=== PATIENT | female | born 1930 | race Caucasian/White ===

== ENCOUNTER 2019-02-14 19:25 | Inpatient (IN) | payer MEDICARE ==
[2019-02-16] MEDS ORDERED: Maalox 30 mL Cup PO PRN ×2 (04:32→09:31)
[2019-02-16] MEDS ORDERED: Magnesium Hydroxide (MOM) 30 mL UDC PO PRN (04:32)
[2019-02-16] MEDS ORDERED: GLUCAGON HCl 1 MG KIT IM PRN (06:19)
[2019-02-16] MEDS ORDERED: INSULIN LISPRO SLIDING SCALE 100 UNITS/ML UNIT SUBQ SCH (07:30)
[2019-02-16] MEDS: Multivitamin Tab PO SCH (09:27)
--- NOTE | 2019-02-16 11:29 | History & Physical ---
ADMIT DATE: 02/16/2019 I am covering for Dr. Kelly. IDENTIFYING INFORMATION: The patient is an 88-year-old female. CHIEF COMPLAINT: No idea. 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 The patient was not able to tell me her age, where she is, why she is here. She could not tell me anything is how she ended up here. The patient apparently came on a voluntary status from [facility] and medically cleared at [facility] under the care of Dr. Kelly and Dr. Gonzalez. The patient was admitted because of constant yelling and not taking her medication, non-redirectable. The patient with a history of hypertension, type 2 diabetes, hyperlipidemia, dementia, depression, gastritis, anemia, and Alzheimer's. She arrived, she was somewhat restless, suspicious, tired, labile and signed the consent for voluntary status with psychotropic medication. The patient is on wheelchair, needs moderate assistance with ADLs. The patient when I try talked her summer internship she is a very poor historian; however, she was able to tell me she has 4th grade education that she lives in an apartment by herself, does not realize that she came from a nursing facility. 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 Unable to tell me if she is or not, but she realizes she has 1 girl, unable to tell her age. PAST PSYCHIATRIC HISTORY: Dementia. MEDICAL HISTORY: THE PATIENT IS ALLERGIC TO TETRACYCLINE. The patient has insulin dependent diabetes mellitus type 2, hypertension, gastritis and anemia. The patient also with a history of depression. FAMILY HISTORY: The patient reports that she has 4th grade education, used to work in a Factory. She has one daughter and unable to tell me if she is or not, unable to tell me her age, where she is, why she is here. MENTAL STATUS EXAMINATION: The patient is appropriately dressed, not very groomed. She was in bed. She was alert, unable to tell her age, where she is, why she is here, long or short term memory is poor. She apparently was yelling and screaming at the nursing facility. Long and short term memory is poor. When asked about hallucination, she denies. When asked about prior psychosis, she denies; however, she states that she has a history of depression and dementia. Her insight about her illness is poor, does not realize what problem has. Judgment is poor because of her dementia, agitation. 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 MEDICAL DIAGNOSES: As per medical doctor. INITIAL TREATMENT PLAN: The patient will continue with the amitriptyline, Aricept 5 mg at bedtime. We will continue with the rest of her medications as well as group therapy, milieu therapy. ESTIMATED LENGTH OF STAY: 3-7 days. DISCHARGE CRITERIA: Decrease agitation, psychosis after discharge, outpatient treatment. JOB# [id number]
[2019-02-16] MEDS: INSULIN LISPRO SLIDING SCALE 100 UNITS/ML UNIT SUBQ SCH ×3 (11:47→21:55)
--- NOTE | 2019-02-16 13:45 | History & Physical ---
ADMIT DATE: 02/16/2019 CHIEF COMPLAINT: Medical evaluation and clearance on the patient who was admitted to the Geropsych Unit. HISTORY OF PRESENT ILLNESS: This is an 88-year-old female who is transferred to [facility] from [facility]. The patient was medically cleared at [facility]. Apparently, the patient has been refusing to take medications and constantly yelling, otherwise patient is medically stable. PAST MEDICAL HISTORY: Hypertension, type 2 diabetes, hyperlipidemia, dementia, depression, gastritis, anemia, Alzheimer's. PAST SURGICAL HISTORY: Unknown. ALLERGIES: TETRACYCLINE. SOCIAL HISTORY: The patient is a jail resident. FAMILY HISTORY: Noncontributory. REVIEW OF SYSTEMS: Unable to obtain at this time. The patient is agitated. PHYSICAL EXAMINATION: GENERAL: Elderly female, agitated, in no apparent distress. VITAL SIGNS: Temperature 97, heart rate 76, blood pressure 140/72, respirations 19, O2 of 96%. HEENT: Head normocephalic, atraumatic. NECK: Supple. No mass. LUNGS: Clear bilaterally. ABDOMEN: Soft, nontender. ASSESSMENT: Type 2 diabetes, hypertension, hyperlipidemia, dementia, depression, history of gastritis, history of anemia, Alzheimer's, agitation. PLAN: Continue patient's home medications. Fall precautions were initiated. We will monitor signs and symptoms of hypo and hyperglycemia. We will continue to monitor this patient. JOB# [id number]
[2019-02-16] MEDS: POLYETHYLENE GLYCOL 3350 17 GM PACK PO SCH (21:55)
--- NOTE | 2019-02-17 03:07 | Progress Notes ---
DATE: 02/16/2019 Case was discussed with staff of the patient, reviewed records. The patient continues to be confused, unpredictable, impulsive, needing redirection, looking disheveled, disorganized, internally preoccupied, easily agitated. She is sleeping better, eating better. No side effects with the medication, no sedation, no nausea, no extrapyramidal symptoms. We will continue to work with the patient in group therapy, milieu therapy, adjust medication as needed. JOB# [id number]
[2019-02-17] MEDS: Pantoprazole 40 mg EC Tab PO SCH (06:42)
[2019-02-17] MEDS: INSULIN LISPRO SLIDING SCALE 100 UNITS/ML UNIT SUBQ SCH ×4 (06:53→20:10)
--- NOTE | 2019-02-17 10:45 | Internal Medicine Prog Note ---
Internal Medicine Subjective - Subjective Service Date: 02/17/19 Patient seen and examined:: with staff Patient is:: awake, verbal, agitated, confused Patient Complaints of:: other (History of Alzheimer's disease.) Per staff patient has:: no adverse event, no episodes of fall, agitated Internal Medicine Objective - Results Recent Labs: Laboratory Last Values POC Glucose 150 MG/DL (70 - 105) H 02/16/19 21:55 - Physical Exam Vitals and I&O: Vital Signs Temp 98.6 F 02/17/19 06:10 Pulse 92 02/17/19 06:10 Resp 20 02/17/19 06:10 BP 160/78 02/17/19 06:10 Pulse Ox 98 02/17/19 06:10 Intake & Output 02/16/19 02/17/19 02/17/19 18:59 06:59 18:59 Intake Total 1200 240 Output Total 1 Balance 1200 239 Weight (lbs) 67.132 kg Intake: Oral 1200 240 Output: Urine/Stool Mix 1 Other: # Voids 1 Active Medications: Current Medications Acetaminophen (Tylenol) 650 mg PO Q4H PRN PRN Reason: mild pain 1-3 Stop: 04/17/19 04:37 Acetaminophen (Tylenol) 650 mg PO Q4H PRN PRN Reason: temp above 100.5 F Stop: 04/17/19 04:38 Al Hydrox/Mg Hydrox/Simethicone (Maalox) 30 ml PO Q6HR PRN PRN Reason: indigestion Stop: 04/17/19 09:30 Amitriptyline HCl (Elavil) 25 mg PO HS [facility]; Protocol Stop: 04/17/19 20:59 Last Admin: 02/16/19 21:55 Dose: 25 mg Clopidogrel Bisulfate (Plavix) 75 mg PO DAILY [facility] Stop: 04/17/19 09:44 Last Admin: 02/16/19 09:53 Dose: 75 mg Dextrose (Glutose 40%) 18.75 gm PO PRN PRN PRN Reason: BS Below 70 if tolerate po Stop: 04/17/19 06:18 Docusate Sodium (Colace) 100 mg PO Q12HR PRN PRN Reason: Constipation Stop: 04/17/19 09:30 Donepezil HCl (Aricept) 5 mg PO HS [facility] Stop: 04/17/19 20:59 Last Admin: 02/16/19 21:55 Dose: 5 mg Glucagon (Glucagen) 1 mg IM PRN PRN PRN Reason: BS Below 70 if not tolerate po Stop: 04/17/19 06:18 Insulin Human Lispro (Humalog Insulin Sliding Scale) 0 units SUBQ ACHS [facility]; Protocol Stop: 04/17/19 11:29 Last Admin: 02/17/19 06:53 Dose: Not Given Lorazepam (Ativan) 0.5 mg PO Q4HR PRN; Protocol PRN Reason: Anxiety Stop: 03/18/19 04:31 Magnesium Hydroxide (Milk Of Magnesia) 30 ml PO HS PRN PRN Reason: Constipation Megestrol Acetate (Megace) 400 mg PO QDAC [facility] Stop: 04/18/19 07:29 Last Admin: 02/17/19 06:42 Dose: 400 mg Multivitamins/Vitamin C (Theragran) 1 tab PO DAILY [facility] Stop: 04/17/19 08:59 Last Admin: 02/16/19 09:27 Dose: 1 tab Ondansetron HCl (Zofran Odt) 4 mg PO Q6HR PRN PRN Reason: Nausea Stop: 04/17/19 09:30 Pantoprazole Sodium (Protonix) 40 mg PO QDAC [facility] Stop: 04/18/19 07:29 Last Admin: 02/17/19 06:42 Dose: 40 mg Polyethylene Glycol (Miralax) 17 gm PO HS [facility] Stop: 04/17/19 20:59 Last Admin: 02/16/19 21:55 Dose: 17 gm Risperidone (Risperdal) 0.25 mg PO DAILY [facility]; Protocol Stop: 04/18/19 08:59 Simvastatin (Zocor) 20 mg PO HS [facility]; Protocol Stop: 04/17/19 20:59 Last Admin: 02/16/19 21:55 Dose: 20 mg Sodium Chloride (Nacl Tab) 1 gm PO DAILY [facility] Stop: 04/17/19 09:44 Last Admin: 02/16/19 09:53 Dose: 1 gm Tramadol HCl (Ultram) 25 mg PO Q8HR PRN PRN Reason: Pain (Moderate 4-6) Stop: 04/17/19 09:30 Zolpidem Tartrate (Ambien) 5 mg PO HS PRN PRN Reason: Insomnia Stop: 04/17/19 04:31 Physical Exam: Patient continues to need to be monitored, yelling and screaming, very agitated behavior. General: weak, demented HEENT: NC/AT Neck: Supple, No JVD Lungs: CTAB Cardiovascular: RRR, Normal S1, Normal S2 Abdomen: soft, non-tender Extremities: clear Neurological: no change Internal Medicine Assmt/Plan - Assessment Assessment: Alzheimer's disease. Agitation. Dementia. Hypertension. Diabetes. Hyperlipidemia. Depression. History of Gastritis. History of Anemia. - Plan Plan: Continue present meds as directed Psych management as per Psych. Monitor vitals and labs. Monitor diet and nutritional support. Fall precaution. Accu-check twice daily. Continue present care management. Nutritional Asmnt/Malnutr-PDOC - Dietary Evaluation Malnutrition Findings (Please click <Entered> for more info): See orders.
[2019-02-17] MEDS: Multivitamin Tab PO SCH (10:56)
[2019-02-17] MEDS: POLYETHYLENE GLYCOL 3350 17 GM PACK PO SCH (20:39)
--- NOTE | 2019-02-18 00:14 | Progress Notes ---
DATE: 02/17/2019 SUBJECTIVE: Chart was reviewed and the patient interviewed. Also, discussed the patient's condition with the staff and reviewed records and labs. The patient is still hyperverbal and still screaming and yelling and needs lots of redirections. She is also still suspicious and paranoid about staff and easily agitated. She also is still having severe anxiety and mood swings. Otherwise, the patient is compliant with taking Aricept with no side effects. ASSESSMENT: The patient is still psychotic and agitated. TREATMENT PLAN: Continue to monitor behavior and condition closely. Also, we will add Risperdal in a dose of 0.5 mg at bedtime and will adjust the dose. Also, continue working on her irritability and poor impulse control. JOB# [id number]
[2019-02-18] MEDS: Pantoprazole 40 mg EC Tab PO SCH (06:55)
[2019-02-18] MEDS: INSULIN LISPRO SLIDING SCALE 100 UNITS/ML UNIT SUBQ SCH ×4 (07:01→21:50)
[2019-02-18] MEDS: Multivitamin Tab PO SCH (08:15)
--- NOTE | 2019-02-18 19:48 | Progress Notes ---
DATE: 02/18/2019 SUBJECTIVE: The patient was seen in her room. The patient is asleep, but easily arousable. The patient appears to be guarded, easily gets frustrated with unpredictable behavior. Otherwise, the patient appears to be in no acute distress. OBJECTIVE: VITAL SIGNS: Temperature 98.5, heart rate 78, blood pressure 136/76, respirations 18, 98% on room air. HEENT: Head is atraumatic, normocephalic. Eyes; bilateral conjunctivae are clear, bilateral pupils equal, round, reactive. NECK: Supple. No JVD. CARDIOVASCULAR: S1 and S2 without murmur. PULMONARY: Clear to auscultation. GASTROINTESTINAL: Soft and nontender without guarding. Positive bowel sounds. MUSCULOSKELETAL: No clubbing. No cyanosis noted. ASSESSMENT: 1. Dementia. 2. Hypertension. 3. Hyperlipidemia. 4. Diabetes. 5. Gastroesophageal reflux disease. 6. History of anemia. PLAN: We will continue to keep the patient inpatient to Psychiatric Unit. We will follow with a psychiatrist to monitor the patient's condition and behavior. We will put the patient on fall precautions. Treatment plans were discussed with the patient's nurse. Treatment plans were discussed with Dr. Gonzalez. JOB# [id number]
[2019-02-18] MEDS: POLYETHYLENE GLYCOL 3350 17 GM PACK PO SCH (21:54)
--- NOTE | 2019-02-19 00:51 | Progress Notes ---
DATE: 02/18/2019 SUBJECTIVE: The patient was seen and evaluated. The patient's chart was reviewed. Covering for Dr. Kelly. IDENTIFYING DATA: An 88-year-old female. The patient was brought in here after the patient came from [facility] for constant yelling and not taking her medications. Today on [id number] evaluation, the patient presents as a very poor historian. She does not know why she is here and she mostly stares on upon questioning her about her mood. She just continues to perseverate, who are you, who are you and attempted to redirect and reassure that I am the physician. She dismisses and then becomes noncompliant with the interview. ASSESSMENT AND PLAN: The patient with the history of dementia with behavior disturbances, who continues to be suspicious. We will continue with the current medication regimen and medication reconciliation was reviewed, which includes risperidone 0.25 daily while we obtain more collateral information and also Aricept. JOB# [id number]
[2019-02-19] MEDS: Pantoprazole 40 mg EC Tab PO SCH (06:56)
[2019-02-19] MEDS: INSULIN LISPRO SLIDING SCALE 100 UNITS/ML UNIT SUBQ SCH ×5 (06:57→21:49)
[2019-02-19] MEDS: Multivitamin Tab PO SCH (09:52)
--- NOTE | 2019-02-19 12:30 | Progress Notes ---
DATE: 02/19/[address] Kelly. Today on [id number] evaluation, continues to be very suspicious, reporting that she does not want to share any information. EXAMINATION: Suspicious of ____. ASSESSMENT PLAN: Dementia with behavior disturbance and psychotic behavior as evident by suspicious, avoidant, and restraining from giving the information. We will continue with the recent addition of Aricept and Risperdal. JOB# [id number]
--- NOTE | 2019-02-19 13:25 | Internal Medicine Prog Note ---
Internal Medicine Subjective - Subjective Patient is:: asleep, verbal, agitated, confused Patient Complaints of:: other (History of Alzheimer's disease.) Per staff patient has:: no adverse event, no episodes of fall, agitated Internal Medicine Objective - Results Recent Labs: Laboratory Last Values POC Glucose 146 MG/DL (70 - 105) H 02/18/19 22:05 - Physical Exam Vitals and I&O: Vital Signs Temp 97.9 F 02/18/19 21:08 Pulse 79 02/18/19 21:08 Resp 19 02/18/19 21:08 BP 134/63 02/18/19 21:08 Pulse Ox 90 02/18/19 21:08 Intake & Output 02/18/19 02/19/19 02/19/19 18:59 06:59 18:59 Intake Total 800 120 Balance 800 120 Intake: Oral 800 120 Other: # Voids 3 2 # Bowel Movements 0 0 Active Medications: Current Medications Acetaminophen (Tylenol) 650 mg PO Q4H PRN PRN Reason: mild pain 1-3 Stop: 04/17/19 04:37 Acetaminophen (Tylenol) 650 mg PO Q4H PRN PRN Reason: temp above 100.5 F Stop: 04/17/19 04:38 Al Hydrox/Mg Hydrox/Simethicone (Maalox) 30 ml PO Q6HR PRN PRN Reason: indigestion Stop: 04/17/19 09:30 Amitriptyline HCl (Elavil) 25 mg PO HS [facility]; Protocol Stop: 04/17/19 20:59 Last Admin: 02/18/19 21:53 Dose: 25 mg Clopidogrel Bisulfate (Plavix) 75 mg PO DAILY [facility] Stop: 04/17/19 09:44 Last Admin: 02/19/19 09:53 Dose: 75 mg Dextrose (Glutose 40%) 18.75 gm PO PRN PRN PRN Reason: BS Below 70 if tolerate po Stop: 04/17/19 06:18 Docusate Sodium (Colace) 100 mg PO Q12HR PRN PRN Reason: Constipation Stop: 04/17/19 09:30 Donepezil HCl (Aricept) 5 mg PO HS [facility] Stop: 04/17/19 20:59 Last Admin: 02/18/19 21:54 Dose: 5 mg Glucagon (Glucagen) 1 mg IM PRN PRN PRN Reason: BS Below 70 if not tolerate po Stop: 04/17/19 06:18 Insulin Human Lispro (Humalog Insulin Sliding Scale) 0 units SUBQ ACHS [facility]; Protocol Stop: 04/17/19 11:29 Last Admin: 02/19/19 12:00 Dose: Not Given Lorazepam (Ativan) 0.5 mg PO Q4HR PRN; Protocol PRN Reason: Anxiety Stop: 03/18/19 04:31 Magnesium Hydroxide (Milk Of Magnesia) 30 ml PO HS PRN PRN Reason: Constipation Megestrol Acetate (Megace) 400 mg PO QDAC [facility] Stop: 04/18/19 07:29 Last Admin: 02/19/19 06:56 Dose: 400 mg Multivitamins/Vitamin C (Theragran) 1 tab PO DAILY [facility] Stop: 04/17/19 08:59 Last Admin: 02/19/19 09:52 Dose: 1 tab Mupirocin (Bactroban Oint) 1 appl NS BID [facility] Stop: 02/23/19 17:01 Last Admin: 02/19/19 09:53 Dose: 1 appl Ondansetron HCl (Zofran Odt) 4 mg PO Q6HR PRN PRN Reason: Nausea Stop: 04/17/19 09:30 Pantoprazole Sodium (Protonix) 40 mg PO QDAC [facility] Stop: 04/18/19 07:29 Last Admin: 02/19/19 06:56 Dose: 40 mg Polyethylene Glycol (Miralax) 17 gm PO HS [facility] Stop: 04/17/19 20:59 Last Admin: 02/18/19 21:54 Dose: 17 gm Risperidone (Risperdal) 0.25 mg PO DAILY [facility]; Protocol Stop: 04/18/19 08:59 Last Admin: 02/19/19 09:52 Dose: 0.25 mg Simvastatin (Zocor) 20 mg PO HS [facility]; Protocol Stop: 04/17/19 20:59 Last Admin: 02/18/19 21:54 Dose: 20 mg Sodium Chloride (Nacl Tab) 1 gm PO DAILY [facility] Stop: 04/17/19 09:44 Last Admin: 02/19/19 09:52 Dose: 1 gm Tramadol HCl (Ultram) 25 mg PO Q8HR PRN PRN Reason: Pain (Moderate 4-6) Stop: 04/17/19 09:30 Zolpidem Tartrate (Ambien) 5 mg PO HS PRN PRN Reason: Insomnia Stop: 04/17/19 04:31 Last Admin: 02/18/19 21:54 Dose: 5 mg General: weak, demented, NAD HEENT: NC/AT Neck: Supple, No JVD Lungs: other (no acute respiratory distress on RA) Cardiovascular: RRR Abdomen: soft, non-tender Extremities: clear Neurological: no change Internal Medicine Assmt/Plan - Assessment Assessment: Dementia Depression Agitation HTN Hyperlipidemia DM GERD hx anemia - Plan Plan: Continue current treatment plan. Continue current medications Continue to monitor VS Monitor Diet/Nutritional support. Psych management per Psychiatry. Pain Management. PT/OT prn Safety precaution, Fall precaution, frequent nursing round. Supportive care. Continue collaborating with consulting specialists, case management and nursing team
[2019-02-19] MEDS ORDERED: Guaifenesin DM 10 ML UDC PO PRN (16:53)
[2019-02-19] MEDS: POLYETHYLENE GLYCOL 3350 17 GM PACK PO SCH (21:48)
[2019-02-20] MEDS: INSULIN LISPRO SLIDING SCALE 100 UNITS/ML UNIT SUBQ SCH ×4 (06:55→21:03)
[2019-02-20] MEDS: Pantoprazole 40 mg EC Tab PO SCH (06:55)
--- NOTE | 2019-02-20 08:41 | Progress Notes ---
DATE: SUBJECTIVE: Chart reviewed and the patient interviewed and discussed the patient's condition with the staff. The patient continued rambling in [place]uvian language and also the patient is nonsensical. She also is still guarded and has labile affect. Also, the patient is suspicious and paranoid and confused. Otherwise, the patient is easier to redirect. ASSESSMENT: The patient is still psychotic. TREATMENT PLAN: We will start the patient on Risperdal 0.25 mg every day and we will continue to monitor her behavior closely. [facility]# [id number]
[2019-02-20] MEDS: Multivitamin Tab PO SCH (09:07)
--- NOTE | 2019-02-20 12:45 | Internal Medicine Prog Note ---
Internal Medicine Subjective - Subjective Service Date: 02/20/19 Patient seen and examined:: with staff Patient is:: asleep, verbal, agitated, confused Patient Complaints of:: other (History of Alzheimer's disease.) Per staff patient has:: no adverse event, no episodes of fall, agitated Internal Medicine Objective - Results Recent Labs: Laboratory Last Values POC Glucose 138 MG/DL (70 - 105) H 02/20/19 11:25 - Physical Exam Vitals and I&O: Vital Signs Temp 98.5 F 02/19/19 20:52 Pulse 96 02/19/19 20:52 Resp 20 02/19/19 20:52 BP 141/75 02/19/19 20:52 Pulse Ox 94 02/19/19 20:52 Intake & Output 02/19/19 02/20/19 02/20/19 18:59 06:59 18:59 Intake Total 800 240 Balance 800 240 Intake: Oral 800 240 Other: # Voids 3 2 # Bowel Movements 1 Active Medications: Current Medications Acetaminophen (Tylenol) 650 mg PO Q4H PRN PRN Reason: mild pain 1-3 Stop: 04/17/19 04:37 Acetaminophen (Tylenol) 650 mg PO Q4H PRN PRN Reason: temp above 100.5 F Stop: 04/17/19 04:38 Al Hydrox/Mg Hydrox/Simethicone (Maalox) 30 ml PO Q6HR PRN PRN Reason: indigestion Stop: 04/17/19 09:30 Amitriptyline HCl (Elavil) 25 mg PO HS [facility]; Protocol Stop: 04/17/19 20:59 Last Admin: 02/19/19 21:49 Dose: 25 mg Clopidogrel Bisulfate (Plavix) 75 mg PO DAILY [facility] Stop: 04/17/19 09:44 Last Admin: 02/20/19 09:06 Dose: 75 mg Dextrose (Glutose 40%) 18.75 gm PO PRN PRN PRN Reason: BS Below 70 if tolerate po Stop: 04/17/19 06:18 Docusate Sodium (Colace) 100 mg PO Q12HR PRN PRN Reason: Constipation Stop: 04/17/19 09:30 Donepezil HCl (Aricept) 5 mg PO HS [facility] Stop: 04/17/19 20:59 Last Admin: 02/19/19 21:48 Dose: 5 mg Glucagon (Glucagen) 1 mg IM PRN PRN PRN Reason: BS Below 70 if not tolerate po Stop: 04/17/19 06:18 Guaifenesin/Dextromethorphan (Robitussin Dm) 10 ml PO Q6HR PRN PRN Reason: Cough Stop: 04/20/19 16:52 Insulin Human Lispro (Humalog Insulin Sliding Scale) 0 units SUBQ ACHS [facility]; Protocol Stop: 04/17/19 11:29 Last Admin: 02/20/19 11:27 Dose: Not Given Lorazepam (Ativan) 0.5 mg PO Q4HR PRN; Protocol PRN Reason: Anxiety Stop: 03/18/19 04:31 Magnesium Hydroxide (Milk Of Magnesia) 30 ml PO HS PRN PRN Reason: Constipation Megestrol Acetate (Megace) 400 mg PO QDAC [facility] Stop: 04/18/19 07:29 Last Admin: 02/20/19 06:55 Dose: 400 mg Multivitamins/Vitamin C (Theragran) 1 tab PO DAILY [facility] Stop: 04/17/19 08:59 Last Admin: 02/20/19 09:07 Dose: 1 tab Mupirocin (Bactroban Oint) 1 appl NS BID [facility] Stop: 02/23/19 17:01 Last Admin: 02/20/19 09:09 Dose: 1 appl Ondansetron HCl (Zofran Odt) 4 mg PO Q6HR PRN PRN Reason: Nausea Stop: 04/17/19 09:30 Pantoprazole Sodium (Protonix) 40 mg PO QDAC [facility] Stop: 04/18/19 07:29 Last Admin: 02/20/19 06:55 Dose: 40 mg Polyethylene Glycol (Miralax) 17 gm PO HS [facility] Stop: 04/17/19 20:59 Last Admin: 02/19/19 21:48 Dose: 17 gm Risperidone (Risperdal) 0.25 mg PO DAILY [facility]; Protocol Stop: 04/18/19 08:59 Last Admin: 02/20/19 09:07 Dose: 0.25 mg Simvastatin (Zocor) 20 mg PO HS [facility]; Protocol Stop: 04/17/19 20:59 Last Admin: 02/19/19 21:50 Dose: 20 mg Sodium Chloride (Nacl Tab) 1 gm PO DAILY [facility] Stop: 04/17/19 09:44 Last Admin: 02/20/19 09:07 Dose: 1 gm Tramadol HCl (Ultram) 25 mg PO Q8HR PRN PRN Reason: Pain (Moderate 4-6) Stop: 04/17/19 09:30 Zolpidem Tartrate (Ambien) 5 mg PO HS PRN PRN Reason: Insomnia Stop: 04/17/19 04:31 Last Admin: 02/19/19 21:49 Dose: 5 mg Physical Exam: Patient continues to need to be monitored, aggressive and has hostile behavior. General: weak, demented, NAD HEENT: NC/AT Neck: Supple, No JVD Lungs: other (no acute respiratory distress on RA) Cardiovascular: RRR Abdomen: soft, non-tender Extremities: clear Neurological: no change Internal Medicine Assmt/Plan - Assessment Assessment: Alzheimer's disease. Agitation. Dementia. Hypertension. Diabetes. Hyperlipidemia. Depression. History of Gastritis. History of Anemia. - Plan Plan: Continue present meds as directed Psych management as per Psych. Monitor vitals and labs. Monitor diet and nutritional support. Fall precaution. Accu-check twice daily. Continue present care management. Nutritional Asmnt/Malnutr-PDOC - Dietary Evaluation Malnutrition Findings (Please click <Entered> for more info): see orders.
[2019-02-20] MEDS: POLYETHYLENE GLYCOL 3350 17 GM PACK PO SCH (20:52)
[2019-02-21] MEDS: Pantoprazole 40 mg EC Tab PO SCH (06:55)
[2019-02-21] MEDS: INSULIN LISPRO SLIDING SCALE 100 UNITS/ML UNIT SUBQ SCH ×4 (06:55→21:42)
[2019-02-21] MEDS: Multivitamin Tab PO SCH (08:30)
--- NOTE | 2019-02-21 16:34 | Internal Medicine Prog Note ---
Internal Medicine Subjective - Subjective Service Date: 02/21/19 Patient is:: asleep, verbal, agitated, confused Patient Complaints of:: other (History of Alzheimer's disease.) Per staff patient has:: no adverse event, no episodes of fall, agitated Internal Medicine Objective - Results Recent Labs: Laboratory Last Values POC Glucose 127 MG/DL (70 - 105) H 02/21/19 11:17 - Physical Exam Vitals and I&O: Vital Signs Temp 97.5 F 02/21/19 14:00 Pulse 82 02/21/19 14:00 Resp 19 02/21/19 14:00 BP 152/87 02/21/19 14:00 Pulse Ox 96 02/21/19 14:00 Intake & Output 02/20/19 02/21/19 02/21/19 18:59 06:59 18:59 Intake Total 900 240 Output Total 1 Balance 900 239 Intake: Oral 900 240 Output: Urine/Stool Mix 1 Other: # Voids 3 3 # Bowel Movements 0 0 Active Medications: Current Medications Acetaminophen (Tylenol) 650 mg PO Q4H PRN PRN Reason: mild pain 1-3 Stop: 04/17/19 04:37 Acetaminophen (Tylenol) 650 mg PO Q4H PRN PRN Reason: temp above 100.5 F Stop: 04/17/19 04:38 Al Hydrox/Mg Hydrox/Simethicone (Maalox) 30 ml PO Q6HR PRN PRN Reason: indigestion Stop: 04/17/19 09:30 Amitriptyline HCl (Elavil) 25 mg PO HS [facility]; Protocol Stop: 04/17/19 20:59 Last Admin: 02/20/19 20:52 Dose: 25 mg Clopidogrel Bisulfate (Plavix) 75 mg PO DAILY [facility] Stop: 04/17/19 09:44 Last Admin: 02/21/19 08:30 Dose: 75 mg Dextrose (Glutose 40%) 18.75 gm PO PRN PRN PRN Reason: BS Below 70 if tolerate po Stop: 04/17/19 06:18 Docusate Sodium (Colace) 100 mg PO Q12HR PRN PRN Reason: Constipation Stop: 04/17/19 09:30 Donepezil HCl (Aricept) 10 mg PO HS [facility] Stop: 04/22/19 20:59 Glucagon (Glucagen) 1 mg IM PRN PRN PRN Reason: BS Below 70 if not tolerate po Stop: 04/17/19 06:18 Guaifenesin/Dextromethorphan (Robitussin Dm) 10 ml PO Q6HR PRN PRN Reason: Cough Stop: 04/20/19 16:52 Insulin Human Lispro (Humalog Insulin Sliding Scale) 0 units SUBQ ACHS [facility]; Protocol Stop: 04/17/19 11:29 Last Admin: 02/21/19 16:27 Dose: Not Given Lorazepam (Ativan) 0.5 mg PO Q4HR PRN; Protocol PRN Reason: Anxiety Stop: 03/18/19 04:31 Magnesium Hydroxide (Milk Of Magnesia) 30 ml PO HS PRN PRN Reason: Constipation Megestrol Acetate (Megace) 400 mg PO QDAC [facility] Stop: 04/18/19 07:29 Last Admin: 02/21/19 06:55 Dose: 400 mg Multivitamins/Vitamin C (Theragran) 1 tab PO DAILY [facility] Stop: 04/17/19 08:59 Last Admin: 02/21/19 08:30 Dose: 1 tab Mupirocin (Bactroban Oint) 1 appl NS BID [facility] Stop: 02/23/19 17:01 Last Admin: 02/21/19 09:40 Dose: 1 appl Ondansetron HCl (Zofran Odt) 4 mg PO Q6HR PRN PRN Reason: Nausea Stop: 04/17/19 09:30 Pantoprazole Sodium (Protonix) 40 mg PO QDAC [facility] Stop: 04/18/19 07:29 Last Admin: 02/21/19 06:55 Dose: 40 mg Polyethylene Glycol (Miralax) 17 gm PO HS [facility] Stop: 04/17/19 20:59 Last Admin: 02/20/19 20:52 Dose: 17 gm Risperidone (Risperdal) 0.25 mg PO DAILY [facility]; Protocol Stop: 04/18/19 08:59 Last Admin: 02/21/19 08:30 Dose: 0.25 mg Simvastatin (Zocor) 20 mg PO HS [facility]; Protocol Stop: 04/17/19 20:59 Last Admin: 02/20/19 20:52 Dose: 20 mg Sodium Chloride (Nacl Tab) 1 gm PO DAILY [facility] Stop: 04/17/19 09:44 Last Admin: 02/21/19 08:30 Dose: 1 gm Tramadol HCl (Ultram) 25 mg PO Q8HR PRN PRN Reason: Pain (Moderate 4-6) Stop: 04/17/19 09:30 Zolpidem Tartrate (Ambien) 5 mg PO HS PRN PRN Reason: Insomnia Stop: 04/17/19 04:31 Last Admin: 02/20/19 20:52 Dose: 5 mg General: weak, demented, NAD HEENT: NC/AT Neck: Supple, No JVD Lungs: other (no acute respiratory distress on RA) Cardiovascular: RRR Abdomen: soft, non-tender Extremities: clear Neurological: no change Nutritional Asmnt/Malnutr-PDOC - Dietary Evaluation Malnutrition Findings (Please click <Entered> for more info): Nutritional Asmnt/Malnutrition Start: 02/21/19 13: 58 Text: Status: Complete Freq: Protocol: Document 02/21/19 14:00 IRIS (Rec: 02/21/19 14:03 [email or web address] [id number]) Nutritional Asmnt/Malnutrition Patient General Information Nutritional Screening Moderate Risk Diagnosis Psychosis Pertinent Medical Hx/Surgical Hx HTN, DMT2- insulin dependent, Hyperlipidemia, Dementia, Depression, Anemia, Alzheimer s Disease Subjective Information Pt is a 88-year-old female admitted on 02/16 d/t constant yelling, not taking medication and being undirectable. Pt is currently eating an estimated 60% x3 days (average) per Meal/Nutrition Activity Record . Dietary is currently providing an estimated 2000 kcals and 120 gm Pro. Per pt PO intake, this is providing an estimated 1200 kcals and 70gm Pro, to meet an estimated 71% kcal and 100% Pro needs. Will continue to monitor pt PO intake trends. Pt was in the community room at time of visit getting ready for activities. Anthropometrics HT: 55 WT: 148 LB (67.27 kg) BMI: 24.68 (normal) GI/ Skin Integrity GI symptoms: soft, non-tender Kamron: 16 Skin Integrity:WNL, intact I/O: 1140/1 (+1139) Last BM: 02/19 x1 Diet Rx: Mechanical Soft, NCS, CRISTHIAN Estimated Energy Needs: ( Geriatric, CBW) 2666-8038 kcals (25-30 kcals/ kg) 67-80g Pro (1.0-1.2 g/kg) 5992-8606 ml (25-30 ml/kg) Current Diet Order/ Nutrition Support Mechanical Soft, NCS, CRISTHIAN Pertinent Medications Maalox (PRN), Plavix, Glutose 40% (PRN), Colace, Glucagen ( PRN), INS-SS, MOM (PRN), Megace, Theragran Pertinent Labs POC Glucose (last 24 hours): 117, 138, 106, 93 02/16: Na 132, Glucose 122, Alb 2.8, HDL 29, A1c 5.9% Nutritional Hx/Data Height 5 ft 5 in Height (Calculated Centimeters) 165.1 Current Weight (lbs) 148 lb Weight (Calculated Kilograms) 67.1 Weight (Calculated Grams) 78387.7 [place] Body Weight 125 LB (56.82 kg) % [place] Body Weight 118 Body Mass Index (BMI) 24.6 Weight Status Approriate GI Symptoms GI Symptoms None Last BM 02/19 x1 Skin Integrity/Comment: Kamron: Miko Skin Integrity: WNL, intact Current %PO Fair (50-74%) Estimated Nutritional Goals BEE in Kcals: Using Current wt Calories/Kcals/Kg 25-30 Kcals Calculated 7467-6614 Protein: Using Current wt Protein g/k.0-1.2 Protein Calculated 67-80 Fluid: ml 7439-3920 ml (25-30 ml/kg) Nutritional Problem 1. Problem Problem Impaired nutrient utilization Etiology r/t endocrine dysfunction Signs/Symptoms: aeb Hx DMT2 and labs POC Glucose (last 24 hours): 117, 138, 106, 93, A1c (02/16) 5.9%. Malnutrition Related to Morbid Obesity Malnutrition related to morbid obesity No Intervention/Recommendation Comments 1.Continue Mechanical Soft, NCS, CRISTHIAN diet as tolerated. 2.Continue antihyperglycemic medications for glucose control per MD order. Expected Outcomes/Goals Expected Outcomes/Goals 1.PO intake to continue to meet 75% of estimated nutritional needs. 2.Monitor PO intake, wt, nutrition related labs, and skin integrity. 3.F/U as low risk in 7-10 days , 02/28-03/03
[2019-02-21] MEDS: POLYETHYLENE GLYCOL 3350 17 GM PACK PO SCH (21:46)
--- NOTE | 2019-02-21 22:09 | Progress Notes ---
DATE: SUBJECTIVE: Chart was reviewed and the patient interviewed. Also discussed the patient's condition with the staff and reviewed records and labs. The patient continue rambling in English language, was difficult to understand. She also is still nonsensical and is still paranoid and suspicious and guarded today. Also, staff reports episodes of yelling and screaming and being restless. Otherwise, the patient seems to be preoccupied and hardly answer questions and is talking to self. ASSESSMENT: The patient is still psychotic. TREATMENT PLAN: Continue to monitor behavior and condition. Also, increase Aricept to 10 mg at bedtime and continue to follow up. JOB# [id number]
[2019-02-22] MEDS: INSULIN LISPRO SLIDING SCALE 100 UNITS/ML UNIT SUBQ SCH ×4 (06:39→20:30)
[2019-02-22] MEDS: Pantoprazole 40 mg EC Tab PO SCH (07:08)
[2019-02-22] MEDS: Multivitamin Tab PO SCH (08:59)
--- NOTE | 2019-02-22 13:26 | Internal Medicine Prog Note ---
Internal Medicine Subjective - Subjective Service Date: 02/22/19 Patient seen and examined:: with staff Patient is:: awake, verbal, agitated, confused Patient Complaints of:: other (History of Alzheimer's disease.) Per staff patient has:: no adverse event, no episodes of fall, agitated Internal Medicine Objective - Results Recent Labs: Laboratory Last Values POC Glucose 105 MG/DL (70 - 105) 02/22/19 11:45 - Physical Exam Vitals and I&O: Vital Signs Temp 98.1 F 02/22/19 06:35 Pulse 73 02/22/19 06:35 Resp 18 02/22/19 06:35 BP 145/86 02/22/19 06:35 Pulse Ox 95 02/22/19 06:35 Intake & Output 02/21/19 02/22/19 02/22/19 18:59 06:59 18:59 Intake Total 850 120 Balance 850 120 Intake: Oral 850 120 Other: # Voids 3 3 # Bowel Movements 1 0 Active Medications: Current Medications Acetaminophen (Tylenol) 650 mg PO Q4H PRN PRN Reason: mild pain 1-3 Stop: 04/17/19 04:37 Acetaminophen (Tylenol) 650 mg PO Q4H PRN PRN Reason: temp above 100.5 F Stop: 04/17/19 04:38 Al Hydrox/Mg Hydrox/Simethicone (Maalox) 30 ml PO Q6HR PRN PRN Reason: indigestion Stop: 04/17/19 09:30 Amitriptyline HCl (Elavil) 25 mg PO HS [facility]; Protocol Stop: 04/17/19 20:59 Last Admin: 02/21/19 21:44 Dose: 25 mg Clopidogrel Bisulfate (Plavix) 75 mg PO DAILY [facility] Stop: 04/17/19 09:44 Last Admin: 02/22/19 08:59 Dose: 75 mg Dextrose (Glutose 40%) 18.75 gm PO PRN PRN PRN Reason: BS Below 70 if tolerate po Stop: 04/17/19 06:18 Docusate Sodium (Colace) 100 mg PO Q12HR PRN PRN Reason: Constipation Stop: 04/17/19 09:30 Donepezil HCl (Aricept) 10 mg PO HS [facility] Stop: 04/22/19 20:59 Last Admin: 02/21/19 21:44 Dose: 10 mg Glucagon (Glucagen) 1 mg IM PRN PRN PRN Reason: BS Below 70 if not tolerate po Stop: 04/17/19 06:18 Guaifenesin/Dextromethorphan (Robitussin Dm) 10 ml PO Q6HR PRN PRN Reason: Cough Stop: 04/20/19 16:52 Insulin Human Lispro (Humalog Insulin Sliding Scale) 0 units SUBQ ACHS [facility]; Protocol Stop: 04/17/19 11:29 Last Admin: 02/22/19 12:28 Dose: Not Given Lorazepam (Ativan) 0.5 mg PO Q4HR PRN; Protocol PRN Reason: Anxiety Stop: 03/18/19 04:31 Last Admin: 02/21/19 23:09 Dose: 0.5 mg Magnesium Hydroxide (Milk Of Magnesia) 30 ml PO HS PRN PRN Reason: Constipation Megestrol Acetate (Megace) 400 mg PO QDAC [facility] Stop: 04/18/19 07:29 Last Admin: 02/22/19 07:08 Dose: 400 mg Multivitamins/Vitamin C (Theragran) 1 tab PO DAILY [facility] Stop: 04/17/19 08:59 Last Admin: 02/22/19 08:59 Dose: 1 tab Mupirocin (Bactroban Oint) 1 appl NS BID [facility] Stop: 02/23/19 17:01 Last Admin: 02/22/19 08:59 Dose: 1 appl Ondansetron HCl (Zofran Odt) 4 mg PO Q6HR PRN PRN Reason: Nausea Stop: 04/17/19 09:30 Pantoprazole Sodium (Protonix) 40 mg PO QDAC [facility] Stop: 04/18/19 07:29 Last Admin: 02/22/19 07:08 Dose: 40 mg Polyethylene Glycol (Miralax) 17 gm PO HS [facility] Stop: 04/17/19 20:59 Last Admin: 02/21/19 21:46 Dose: 17 gm Risperidone (Risperdal) 0.25 mg PO BID [facility]; Protocol Stop: 04/23/19 08:59 Last Admin: 02/22/19 09:29 Dose: 0.25 mg Simvastatin (Zocor) 20 mg PO HS [facility]; Protocol Stop: 04/17/19 20:59 Last Admin: 02/21/19 21:45 Dose: 20 mg Sodium Chloride (Nacl Tab) 1 gm PO DAILY [facility] Stop: 04/17/19 09:44 Last Admin: 02/22/19 08:59 Dose: 1 gm Tramadol HCl (Ultram) 25 mg PO Q8HR PRN PRN Reason: Pain (Moderate 4-6) Stop: 04/17/19 09:30 Zolpidem Tartrate (Ambien) 5 mg PO HS PRN PRN Reason: Insomnia Stop: 04/17/19 04:31 Last Admin: 02/21/19 22:27 Dose: 5 mg Physical Exam: Patient continues to need to be monitored, unpredictable, remains very psychotic and aggressive. General: weak, demented, NAD HEENT: NC/AT Neck: Supple, No JVD Lungs: other (no acute respiratory distress on RA) Cardiovascular: RRR Abdomen: soft, non-tender Extremities: clear Neurological: no change Internal Medicine Assmt/Plan - Assessment Assessment: Alzheimer's disease. Agitation. Dementia. Hypertension. Diabetes. Hyperlipidemia. Depression. History of Gastritis. History of Anemia. - Plan Plan: Continue present meds as directed Psych management as per Psych. Monitor vitals and labs. Monitor diet and nutritional support. Fall precaution. Accu-check twice daily. Continue present care management. Nutritional Asmnt/Malnutr-PDOC - Dietary Evaluation Malnutrition Findings (Please click <Entered> for more info): Nutritional Asmnt/Malnutrition Start: 02/21/19 13: 58 Text: Status: Complete Freq: Protocol: Document 02/21/19 14:00 IRIS (Rec: 02/21/19 14:03 IRIS [id number]) Nutritional Asmnt/Malnutrition Patient General Information Nutritional Screening Moderate Risk Diagnosis Psychosis Pertinent Medical Hx/Surgical Hx HTN, DMT2- insulin dependent, Hyperlipidemia, Dementia, Depression, Anemia, Alzheimer s Disease Subjective Information Pt is a 88-year-old female admitted on 02/16 d/t constant yelling, not taking medication and being undirectable. Pt is currently eating an estimated 60% x3 days (average) per Meal/Nutrition Activity Record . Dietary is currently providing an estimated 2000 kcals and 120 gm Pro. Per pt PO intake, this is providing an estimated 1200 kcals and 70gm Pro, to meet an estimated 71% kcal and 100% Pro needs. Will continue to monitor pt PO intake trends. Pt was in the community room at time of visit getting ready for activities. Anthropometrics HT: 55 WT: 148 LB (67.27 kg) BMI: 24.68 (normal) GI/ Skin Integrity GI symptoms: soft, non-tender Kamron: 16 Skin Integrity:WNL, intact I/O: 1140/1 (+1139) Last BM: 02/19 x1 Diet Rx: Mechanical Soft, NCS, CRISTHIAN Estimated Energy Needs: ( Geriatric, CBW) 6360-9557 kcals (25-30 kcals/ kg) 67-80g Pro (1.0-1.2 g/kg) 6184-5630 ml (25-30 ml/kg) Current Diet Order/ Nutrition Support Mechanical Soft, NCS, CRISTHIAN Pertinent Medications Maalox (PRN), Plavix, Glutose 40% (PRN), Colace, Glucagen ( PRN), INS-SS, MOM (PRN), Megace, Theragran Pertinent Labs POC Glucose (last 24 hours): 117, 138, 106, 93 02/16: Na 132, Glucose 122, Alb 2.8, HDL 29, A1c 5.9% Nutritional Hx/Data Height 1.65 m Height (Calculated Centimeters) 165.1 Current Weight (lbs) 67.132 kg Weight (Calculated Kilograms) 67.1 Weight (Calculated Grams) 98017.7 [place] Body Weight 125 LB (56.82 kg) % [place] Body Weight 118 Body Mass Index (BMI) 24.6 Weight Status Approriate GI Symptoms GI Symptoms None Last BM 02/19 x1 Skin Integrity/Comment: Kamron: 16 Skin Integrity: WNL, intact Current %PO Fair (50-74%) Estimated Nutritional Goals BEE in Kcals: Using Current wt Calories/Kcals/Kg 25-30 Kcals Calculated 9252-0881 Protein: Using Current wt Protein g/k.0-1.2 Protein Calculated 67-80 Fluid: ml 6236-0240 ml (25-30 ml/kg) Nutritional Problem 1. Problem Problem Impaired nutrient utilization Etiology r/t endocrine dysfunction Signs/Symptoms: aeb Hx DMT2 and labs POC Glucose (last 24 hours): 117, 138, 106, 93, A1c (02/16) 5.9%. Malnutrition Related to Morbid Obesity Malnutrition related to morbid obesity No Intervention/Recommendation Comments 1.Continue Mechanical Soft, NCS, CRISTHIAN diet as tolerated. 2.Continue antihyperglycemic medications for glucose control per MD order. Expected Outcomes/Goals Expected Outcomes/Goals 1.PO intake to continue to meet 75% of estimated nutritional needs. 2.Monitor PO intake, wt, nutrition related labs, and skin integrity. 3.F/U as low risk in 7-10 days , 02/28-03/03
[2019-02-22] MEDS: POLYETHYLENE GLYCOL 3350 17 GM PACK PO SCH (20:29)
--- NOTE | 2019-02-22 21:36 | Progress Notes ---
DATE: 02/22/2019 SUBJECTIVE: Chart was reviewed and the patient interviewed. Also discussed the patient's condition with the staff and reviewed records and labs. The patient continued to be anxious and restless. She also still has episodes of yelling and screaming and she is still confused and nonsensical. She will continue rambling in [place] language. Also, the patient has been yelling and talking to herself. Otherwise, the patient continued to comply with taking her medications with no side effects of medications. ASSESSMENT: The patient is still psychotic and agitated. TREATMENT PLAN: Continue to monitor behavior and condition closely. Also, we can increase Risperdal to 0.25 mg twice a day and we will continue to follow up closely. [facility]# [id number]
[2019-02-23] MEDS: INSULIN LISPRO SLIDING SCALE 100 UNITS/ML UNIT SUBQ SCH ×4 (06:36→21:43)
[2019-02-23] MEDS: Pantoprazole 40 mg EC Tab PO SCH (06:36)
[2019-02-23] MEDS: Multivitamin Tab PO SCH (08:55)
--- NOTE | 2019-02-23 17:25 | Internal Medicine Prog Note ---
Internal Medicine Subjective - Subjective Service Date: 02/23/19 Patient is:: awake, verbal, agitated, confused Patient Complaints of:: other (History of Alzheimer's disease.) Per staff patient has:: no adverse event, no episodes of fall, agitated Internal Medicine Objective - Results Recent Labs: Laboratory Last Values POC Glucose 114 MG/DL (70 - 105) H 02/23/19 05:21 - Physical Exam Vitals and I&O: Vital Signs Temp 97.4 F 02/23/19 14:00 Pulse 78 02/23/19 14:00 Resp 18 02/23/19 14:00 BP 136/66 02/23/19 14:00 Pulse Ox 96 02/23/19 14:00 Intake & Output 02/22/19 02/23/19 02/23/19 18:59 06:59 18:59 Intake Total 480 240 120 Balance 480 240 120 Intake: Oral 360 240 120 Other 120 Other: # Voids 3 2 2 # Bowel Movements 0 1 0 Active Medications: Current Medications Acetaminophen (Tylenol) 650 mg PO Q4H PRN PRN Reason: mild pain 1-3 Stop: 04/17/19 04:37 Acetaminophen (Tylenol) 650 mg PO Q4H PRN PRN Reason: temp above 100.5 F Stop: 04/17/19 04:38 Al Hydrox/Mg Hydrox/Simethicone (Maalox) 30 ml PO Q6HR PRN PRN Reason: indigestion Stop: 04/17/19 09:30 Amitriptyline HCl (Elavil) 25 mg PO HS [facility]; Protocol Stop: 04/17/19 20:59 Last Admin: 02/22/19 20:29 Dose: 25 mg Clopidogrel Bisulfate (Plavix) 75 mg PO DAILY [facility] Stop: 04/17/19 09:44 Last Admin: 02/23/19 08:56 Dose: 75 mg Dextrose (Glutose 40%) 18.75 gm PO PRN PRN PRN Reason: BS Below 70 if tolerate po Stop: 04/17/19 06:18 Docusate Sodium (Colace) 100 mg PO Q12HR PRN PRN Reason: Constipation Stop: 04/17/19 09:30 Donepezil HCl (Aricept) 10 mg PO HS [facility] Stop: 04/22/19 20:59 Last Admin: 02/22/19 20:29 Dose: 10 mg Glucagon (Glucagen) 1 mg IM PRN PRN PRN Reason: BS Below 70 if not tolerate po Stop: 04/17/19 06:18 Guaifenesin/Dextromethorphan (Robitussin Dm) 10 ml PO Q6HR PRN PRN Reason: Cough Stop: 04/20/19 16:52 Insulin Human Lispro (Humalog Insulin Sliding Scale) 0 units SUBQ ACHS [facility]; Protocol Stop: 04/17/19 11:29 Last Admin: 02/23/19 16:30 Dose: Not Given Lorazepam (Ativan) 0.5 mg PO Q4HR PRN; Protocol PRN Reason: Anxiety Stop: 03/18/19 04:31 Last Admin: 02/22/19 20:31 Dose: 0.5 mg Magnesium Hydroxide (Milk Of Magnesia) 30 ml PO HS PRN PRN Reason: Constipation Megestrol Acetate (Megace) 400 mg PO QDAC [facility] Stop: 04/18/19 07:29 Last Admin: 02/23/19 06:36 Dose: 400 mg Multivitamins/Vitamin C (Theragran) 1 tab PO DAILY [facility] Stop: 04/17/19 08:59 Last Admin: 02/23/19 08:55 Dose: 1 tab Ondansetron HCl (Zofran Odt) 4 mg PO Q6HR PRN PRN Reason: Nausea Stop: 04/17/19 09:30 Pantoprazole Sodium (Protonix) 40 mg PO QDAC [facility] Stop: 04/18/19 07:29 Last Admin: 02/23/19 06:36 Dose: 40 mg Polyethylene Glycol (Miralax) 17 gm PO HS [facility] Stop: 04/17/19 20:59 Last Admin: 02/22/19 20:29 Dose: 17 gm Risperidone (Risperdal) 0.25 mg PO BID [facility]; Protocol Stop: 04/23/19 08:59 Last Admin: 02/23/19 17:22 Dose: 0.25 mg Simvastatin (Zocor) 20 mg PO HS [facility]; Protocol Stop: 04/17/19 20:59 Last Admin: 02/22/19 20:29 Dose: 20 mg Sodium Chloride (Nacl Tab) 1 gm PO DAILY [facility] Stop: 04/17/19 09:44 Last Admin: 02/23/19 08:55 Dose: 1 gm Tramadol HCl (Ultram) 25 mg PO Q8HR PRN PRN Reason: Pain (Moderate 4-6) Stop: 04/17/19 09:30 Zolpidem Tartrate (Ambien) 5 mg PO HS PRN PRN Reason: Insomnia Stop: 04/17/19 04:31 Last Admin: 02/22/19 21:35 Dose: 5 mg General: weak, demented, NAD HEENT: NC/AT Neck: Supple, No JVD Lungs: other (no acute respiratory distress on RA) Cardiovascular: RRR Abdomen: soft, non-tender Extremities: clear Neurological: no change Internal Medicine Assmt/Plan - Assessment Assessment: Dementia Depression Agitation HTN Hyperlipidemia DM GERD hx anemia - Plan Plan: Continue current treatment plan. Continue current medications Continue to monitor VS Monitor Diet/Nutritional support. Psych management per Psychiatry. Pain Management. PT/OT prn Safety precaution, Fall precaution, frequent nursing round. Supportive care. Continue collaborating with consulting specialists, case management and nursing team Nutritional Asmnt/Malnutr-PDOC - Dietary Evaluation Malnutrition Findings (Please click <Entered> for more info): Nutritional Asmnt/Malnutrition Start: 02/21/19 13: 58 Text: Status: Complete Freq: Protocol: Document 02/21/19 14:00 IRIS (Rec: 02/21/19 14:03 IRIS [id number]) Nutritional Asmnt/Malnutrition Patient General Information Nutritional Screening Moderate Risk Diagnosis Psychosis Pertinent Medical Hx/Surgical Hx HTN, DMT2- insulin dependent, Hyperlipidemia, Dementia, Depression, Anemia, Alzheimer s Disease Subjective Information Pt is a 88-year-old female admitted on 02/16 d/t constant yelling, not taking medication and being undirectable. Pt is currently eating an estimated 60% x3 days (average) per Meal/Nutrition Activity Record . Dietary is currently providing an estimated 2000 kcals and 120 gm Pro. Per pt PO intake, this is providing an estimated 1200 kcals and 70gm Pro, to meet an estimated 71% kcal and 100% Pro needs. Will continue to monitor pt PO intake trends. Pt was in the community room at time of visit getting ready for activities. Anthropometrics HT: 55 WT: 148 LB (67.27 kg) BMI: 24.68 (normal) GI/ Skin Integrity GI symptoms: soft, non-tender Kamron: 16 Skin Integrity:WNL, intact I/O: 1140/1 (+1139) Last BM: 02/19 x1 Diet Rx: Mechanical Soft, NCS, CRISTHIAN Estimated Energy Needs: ( Geriatric, CBW) 9714-6134 kcals (25-30 kcals/ kg) 67-80g Pro (1.0-1.2 g/kg) 2776-2094 ml (25-30 ml/kg) Current Diet Order/ Nutrition Support Mechanical Soft, NCS, CRISTHIAN Pertinent Medications Maalox (PRN), Plavix, Glutose 40% (PRN), Colace, Glucagen ( PRN), INS-SS, MOM (PRN), Megace, Theragran Pertinent Labs POC Glucose (last 24 hours): 117, 138, 106, 93 02/16: Na 132, Glucose 122, Alb 2.8, HDL 29, A1c 5.9% Nutritional Hx/Data Height 5 ft 5 in Height (Calculated Centimeters) 165.1 Current Weight (lbs) 148 lb Weight (Calculated Kilograms) 67.1 Weight (Calculated Grams) 05479.7 [place] Body Weight 125 LB (56.82 kg) % [place] Body Weight 118 Body Mass Index (BMI) 24.6 Weight Status Approriate GI Symptoms GI Symptoms None Last BM 02/19 x1 Skin Integrity/Comment: Kamron: 16 Skin Integrity: WNL, intact Current %PO Fair (50-74%) Estimated Nutritional Goals BEE in Kcals: Using Current wt Calories/Kcals/Kg 25-30 Kcals Calculated 6833-4662 Protein: Using Current wt Protein g/k.0-1.2 Protein Calculated 67-80 Fluid: ml 8518-6791 ml (25-30 ml/kg) Nutritional Problem 1. Problem Problem Impaired nutrient utilization Etiology r/t endocrine dysfunction Signs/Symptoms: aeb Hx DMT2 and labs POC Glucose (last 24 hours): 117, 138, 106, 93, A1c (02/16) 5.9%. Malnutrition Related to Morbid Obesity Malnutrition related to morbid obesity No Intervention/Recommendation Comments 1.Continue Mechanical Soft, NCS, CRISTHIAN diet as tolerated. 2.Continue antihyperglycemic medications for glucose control per MD order. Expected Outcomes/Goals Expected Outcomes/Goals 1.PO intake to continue to meet 75% of estimated nutritional needs. 2.Monitor PO intake, wt, nutrition related labs, and skin integrity. 3.F/U as low risk in 7-10 days , 02/28-03/03
[2019-02-23] MEDS: POLYETHYLENE GLYCOL 3350 17 GM PACK PO SCH (21:48)
--- NOTE | 2019-02-24 01:24 | Progress Notes ---
DATE: 02/23/2019 SUBJECTIVE: Chart was reviewed and the patient interviewed. Also discussed the patient's condition with the staff and reviewed records and labs. The patient is still having episodes of agitation and irritability. The patient also is still yelling and screaming at times and is nonsensical and difficulty following directions from staff. The patient also has labile affect and irritable mood. Needs constant redirections. Otherwise, the patient is compliant with taking Risperdal with no side effects. ASSESSMENT: The patient is still psychotic and agitated. TREATMENT PLAN: Continue to monitor behavior and condition closely. Also, continue adjusting psychotropic medications and work on behavioral modification. JOB# [id number]
[2019-02-24] MEDS: INSULIN LISPRO SLIDING SCALE 100 UNITS/ML UNIT SUBQ SCH ×4 (06:43→21:34)
[2019-02-24] MEDS: Pantoprazole 40 mg EC Tab PO SCH (06:44)
[2019-02-24] MEDS: Multivitamin Tab PO SCH (09:42)
--- NOTE | 2019-02-24 14:34 | Internal Medicine Prog Note ---
Internal Medicine Subjective - Subjective Service Date: 02/24/19 Patient seen and examined:: with staff Patient is:: awake, verbal, agitated, confused Patient Complaints of:: other (History of Alzheimer's disease.) Per staff patient has:: no adverse event, no episodes of fall, agitated Internal Medicine Objective - Results Recent Labs: Laboratory Last Values POC Glucose 126 MG/DL (70 - 105) H 02/24/19 11:12 - Physical Exam Vitals and I&O: Vital Signs Temp 98.2 F 02/24/19 06:31 Pulse 88 02/24/19 06:31 Resp 18 02/24/19 06:31 BP 139/76 02/24/19 06:31 Pulse Ox 97 02/24/19 06:31 Intake & Output 02/23/19 02/24/19 02/24/19 18:59 06:59 18:59 Intake Total 920 120 Balance 920 120 Intake: Oral 920 120 Other: # Voids 4 3 # Bowel Movements 1 1 Active Medications: Current Medications Acetaminophen (Tylenol) 650 mg PO Q4H PRN PRN Reason: mild pain 1-3 Stop: 04/17/19 04:37 Acetaminophen (Tylenol) 650 mg PO Q4H PRN PRN Reason: temp above 100.5 F Stop: 04/17/19 04:38 Al Hydrox/Mg Hydrox/Simethicone (Maalox) 30 ml PO Q6HR PRN PRN Reason: indigestion Stop: 04/17/19 09:30 Amitriptyline HCl (Elavil) 25 mg PO HS [facility]; Protocol Stop: 04/17/19 20:59 Last Admin: 02/23/19 21:48 Dose: 25 mg Clopidogrel Bisulfate (Plavix) 75 mg PO DAILY [facility] Stop: 04/17/19 09:44 Last Admin: 02/24/19 09:32 Dose: 75 mg Dextrose (Glutose 40%) 18.75 gm PO PRN PRN PRN Reason: BS Below 70 if tolerate po Stop: 04/17/19 06:18 Docusate Sodium (Colace) 100 mg PO Q12HR PRN PRN Reason: Constipation Stop: 04/17/19 09:30 Donepezil HCl (Aricept) 10 mg PO HS [facility] Stop: 04/22/19 20:59 Last Admin: 02/23/19 21:48 Dose: 10 mg Glucagon (Glucagen) 1 mg IM PRN PRN PRN Reason: BS Below 70 if not tolerate po Stop: 04/17/19 06:18 Guaifenesin/Dextromethorphan (Robitussin Dm) 10 ml PO Q6HR PRN PRN Reason: Cough Stop: 04/20/19 16:52 Insulin Human Lispro (Humalog Insulin Sliding Scale) 0 units SUBQ ACHS [facility]; Protocol Stop: 04/17/19 11:29 Last Admin: 02/24/19 11:19 Dose: Not Given Lorazepam (Ativan) 0.5 mg PO Q4HR PRN; Protocol PRN Reason: Anxiety Stop: 03/18/19 04:31 Last Admin: 02/24/19 09:43 Dose: 0.5 mg Magnesium Hydroxide (Milk Of Magnesia) 30 ml PO HS PRN PRN Reason: Constipation Megestrol Acetate (Megace) 400 mg PO QDAC [facility] Stop: 04/18/19 07:29 Last Admin: 02/24/19 06:44 Dose: 400 mg Multivitamins/Vitamin C (Theragran) 1 tab PO DAILY [facility] Stop: 04/17/19 08:59 Last Admin: 02/24/19 09:42 Dose: 1 tab Ondansetron HCl (Zofran Odt) 4 mg PO Q6HR PRN PRN Reason: Nausea Stop: 04/17/19 09:30 Pantoprazole Sodium (Protonix) 40 mg PO QDAC [facility] Stop: 04/18/19 07:29 Last Admin: 02/24/19 06:44 Dose: 40 mg Polyethylene Glycol (Miralax) 17 gm PO HS [facility] Stop: 04/17/19 20:59 Last Admin: 02/23/19 21:48 Dose: 17 gm Risperidone (Risperdal) 0.5 mg PO BID [facility]; Protocol Stop: 04/25/19 08:59 Last Admin: 02/24/19 09:43 Dose: 0.5 mg Simvastatin (Zocor) 20 mg PO HS [facility]; Protocol Stop: 04/17/19 20:59 Last Admin: 02/23/19 21:49 Dose: 20 mg Sodium Chloride (Nacl Tab) 1 gm PO DAILY [facility] Stop: 04/17/19 09:44 Last Admin: 02/24/19 09:42 Dose: 1 gm Tramadol HCl (Ultram) 25 mg PO Q8HR PRN PRN Reason: Pain (Moderate 4-6) Stop: 04/17/19 09:30 Zolpidem Tartrate (Ambien) 5 mg PO HS PRN PRN Reason: Insomnia Stop: 04/17/19 04:31 Last Admin: 02/23/19 21:48 Dose: 5 mg Physical Exam: Patient continues to need to be monitored, easily frustrated, aggressive and irritable. General: weak, demented, NAD HEENT: NC/AT Neck: Supple, No JVD Lungs: other (no acute respiratory distress on RA) Cardiovascular: RRR Abdomen: soft, non-tender Extremities: clear Neurological: no change Internal Medicine Assmt/Plan - Assessment Assessment: Alzheimer's disease. Agitation. Dementia. Hypertension. Diabetes. Hyperlipidemia. Depression. History of Gastritis. History of Anemia. - Plan Plan: Continue present meds as directed Psych management as per Psych. Monitor vitals and labs. Monitor diet and nutritional support. Fall precaution. Accu-check twice daily. Continue present care management. Nutritional Asmnt/Malnutr-PDOC - Dietary Evaluation Malnutrition Findings (Please click <Entered> for more info): Nutritional Asmnt/Malnutrition Start: 02/21/19 13: 58 Text: Status: Complete Freq: Protocol: Document 02/21/19 14:00 IRIS (Rec: 02/21/19 14:03 [email or web address] [id number]) Nutritional Asmnt/Malnutrition Patient General Information Nutritional Screening Moderate Risk Diagnosis Psychosis Pertinent Medical Hx/Surgical Hx HTN, DMT2- insulin dependent, Hyperlipidemia, Dementia, Depression, Anemia, Alzheimer s Disease Subjective Information Pt is a 88-year-old female admitted on 02/16 d/t constant yelling, not taking medication and being undirectable. Pt is currently eating an estimated 60% x3 days (average) per Meal/Nutrition Activity Record . Dietary is currently providing an estimated 2000 kcals and 120 gm Pro. Per pt PO intake, this is providing an estimated 1200 kcals and 70gm Pro, to meet an estimated 71% kcal and 100% Pro needs. Will continue to monitor pt PO intake trends. Pt was in the community room at time of visit getting ready for activities. Anthropometrics HT: 55 WT: 148 LB (67.27 kg) BMI: 24.68 (normal) GI/ Skin Integrity GI symptoms: soft, non-tender Kamron: 16 Skin Integrity:WNL, intact I/O: 1140/1 (+1139) Last BM: 02/19 x1 Diet Rx: Mechanical Soft, NCS, CRISTHIAN Estimated Energy Needs: ( Geriatric, CBW) 5739-5664 kcals (25-30 kcals/ kg) 67-80g Pro (1.0-1.2 g/kg) 0399-8024 ml (25-30 ml/kg) Current Diet Order/ Nutrition Support Mechanical Soft, NCS, CRISTHIAN Pertinent Medications Maalox (PRN), Plavix, Glutose 40% (PRN), Colace, Glucagen ( PRN), INS-SS, MOM (PRN), Megace, Theragran Pertinent Labs POC Glucose (last 24 hours): 117, 138, 106, 93 02/16: Na 132, Glucose 122, Alb 2.8, HDL 29, A1c 5.9% Nutritional Hx/Data Height 1.65 m Height (Calculated Centimeters) 165.1 Current Weight (lbs) 67.132 kg Weight (Calculated Kilograms) 67.1 Weight (Calculated Grams) 58772.7 [place] Body Weight 125 LB (56.82 kg) % [place] Body Weight 118 Body Mass Index (BMI) 24.6 Weight Status Approriate GI Symptoms GI Symptoms None Last BM 02/19 x1 Skin Integrity/Comment: Kamron: 16 Skin Integrity: WNL, intact Current %PO Fair (50-74%) Estimated Nutritional Goals BEE in Kcals: Using Current wt Calories/Kcals/Kg 25-30 Kcals Calculated 6064-4231 Protein: Using Current wt Protein g/k.0-1.2 Protein Calculated 67-80 Fluid: ml 5023-9161 ml (25-30 ml/kg) Nutritional Problem 1. Problem Problem Impaired nutrient utilization Etiology r/t endocrine dysfunction Signs/Symptoms: aeb Hx DMT2 and labs POC Glucose (last 24 hours): 117, 138, 106, 93, A1c (02/16) 5.9%. Malnutrition Related to Morbid Obesity Malnutrition related to morbid obesity No Intervention/Recommendation Comments 1.Continue Mechanical Soft, NCS, CRISTHIAN diet as tolerated. 2.Continue antihyperglycemic medications for glucose control per MD order. Expected Outcomes/Goals Expected Outcomes/Goals 1.PO intake to continue to meet 75% of estimated nutritional needs. 2.Monitor PO intake, wt, nutrition related labs, and skin integrity. 3.F/U as low risk in 7-10 days , 02/28-03/03
[2019-02-24] MEDS: POLYETHYLENE GLYCOL 3350 17 GM PACK PO SCH (21:22)
[2019-02-25] MEDS: Pantoprazole 40 mg EC Tab PO SCH (06:50)
[2019-02-25] MEDS: INSULIN LISPRO SLIDING SCALE 100 UNITS/ML UNIT SUBQ SCH ×4 (07:00→20:46)
[2019-02-25] MEDS: Multivitamin Tab PO SCH (10:00)
--- NOTE | 2019-02-25 10:47 | Progress Notes ---
DATE: 02/25/2019 SUBJECTIVE: The patient was seen in her room. The patient is asleep, but easily arousable. The patient appears to be more calm and relaxed and cooperative, still has episodes of forgetfulness and needs some redirection. Otherwise, the patient appears to be in no acute distress. OBJECTIVE: VITAL SIGNS: Temperature 97.3, heart rate 77, blood pressure 132/68, respirations ____, 97% on room air. HEENT: Head is atraumatic and normocephalic. Eyes: Bilateral conjunctivae are clear. Bilateral pupils are equally round and reactive. NECK: Supple. No JVD. CARDIOVASCULAR: S1, S2, without murmur. PULMONARY: Clear to auscultation. GASTROINTESTINAL: Soft and nontender without guarding. Positive bowel sounds. MUSCULOSKELETAL: No clubbing, no cyanosis noted. ASSESSMENT: 1. Dementia. 2. Hypertension. 3. Hyperlipidemia. 4. Diabetes. 5. Gastroesophageal reflux disease. 6. Anemia. PLAN: We will continue to keep the patient inpatient to Psychiatric Unit. We will follow up with a psychiatrist to monitor the patient's condition and behavior. Treatment plans were discussed with the patient's nurse. Treatment plans were discussed with Dr. Gonzalez. [facility]# [id number]
--- NOTE | 2019-02-25 18:49 | Progress Notes ---
DATE: 02/25/2019 Case was discussed with staff of the patient, reviewed records. The patient is well-known to me. I have seen her before covering for Dr. Kelly. The patient continues to be easily agitated, irritable. Continues to have episodes of yelling and screaming. Continues to be confused, labile, unable to make safe plan for self-care, and needing redirection. Continues to be agitated. No side effects with the medication, no sedation, no nausea, no extrapyramidal symptoms. She is currently on amitriptyline 25 mg at bedtime, Aricept 10 mg at bedtime and Risperdal 0.5 mg twice a day. We will continue outpatient group therapy, milieu therapy, and adjust medications as needed. JOB# [id number]
[2019-02-25] MEDS: POLYETHYLENE GLYCOL 3350 17 GM PACK PO SCH (20:49)
[2019-02-26] MEDS: Pantoprazole 40 mg EC Tab PO SCH (06:53)
[2019-02-26] MEDS: INSULIN LISPRO SLIDING SCALE 100 UNITS/ML UNIT SUBQ SCH ×4 (06:54→21:00)
[2019-02-26] MEDS: Multivitamin Tab PO SCH (09:58)
--- NOTE | 2019-02-26 10:43 | Internal Medicine Prog Note ---
Internal Medicine Subjective - Subjective Patient is:: asleep, in bed, agitated, confused Patient Complaints of:: other (History of Alzheimer's disease.) Per staff patient has:: no adverse event, no episodes of fall, agitated Internal Medicine Objective - Results Recent Labs: Laboratory Last Values POC Glucose 182 MG/DL (70 - 105) H 02/25/19 19:54 - Physical Exam Vitals and I&O: Vital Signs Temp 98.4 F 02/26/19 06:50 Pulse 85 02/26/19 06:50 Resp 20 02/26/19 06:50 BP 151/79 02/26/19 06:50 Pulse Ox 93 02/26/19 06:50 Intake & Output 02/25/19 02/26/19 02/26/19 18:59 06:59 18:59 Intake Total 480 Output Total 1 Balance 479 Intake: Oral 480 Output: Urine/Stool Mix 1 Other: # Voids 1 Active Medications: Current Medications Acetaminophen (Tylenol) 650 mg PO Q4H PRN PRN Reason: mild pain 1-3 Stop: 04/17/19 04:37 Acetaminophen (Tylenol) 650 mg PO Q4H PRN PRN Reason: temp above 100.5 F Stop: 04/17/19 04:38 Al Hydrox/Mg Hydrox/Simethicone (Maalox) 30 ml PO Q6HR PRN PRN Reason: indigestion Stop: 04/17/19 09:30 Amitriptyline HCl (Elavil) 25 mg PO HS [facility]; Protocol Stop: 04/17/19 20:59 Last Admin: 02/25/19 20:48 Dose: 25 mg Clopidogrel Bisulfate (Plavix) 75 mg PO DAILY [facility] Stop: 04/17/19 09:44 Last Admin: 02/26/19 09:58 Dose: 75 mg Dextrose (Glutose 40%) 18.75 gm PO PRN PRN PRN Reason: BS Below 70 if tolerate po Stop: 04/17/19 06:18 Docusate Sodium (Colace) 100 mg PO Q12HR PRN PRN Reason: Constipation Stop: 04/17/19 09:30 Donepezil HCl (Aricept) 10 mg PO HS [facility] Stop: 04/22/19 20:59 Last Admin: 02/25/19 20:48 Dose: 10 mg Glucagon (Glucagen) 1 mg IM PRN PRN PRN Reason: BS Below 70 if not tolerate po Stop: 04/17/19 06:18 Guaifenesin/Dextromethorphan (Robitussin Dm) 10 ml PO Q6HR PRN PRN Reason: Cough Stop: 04/20/19 16:52 Insulin Human Lispro (Humalog Insulin Sliding Scale) 0 units SUBQ ACHS [facility]; Protocol Stop: 04/17/19 11:29 Last Admin: 02/26/19 06:54 Dose: Not Given Lorazepam (Ativan) 0.5 mg PO Q4HR PRN; Protocol PRN Reason: Anxiety Stop: 03/18/19 04:31 Last Admin: 02/25/19 16:48 Dose: 0.5 mg Magnesium Hydroxide (Milk Of Magnesia) 30 ml PO HS PRN PRN Reason: Constipation Megestrol Acetate (Megace) 400 mg PO QDAC [facility] Stop: 04/18/19 07:29 Last Admin: 02/26/19 06:53 Dose: 400 mg Multivitamins/Vitamin C (Theragran) 1 tab PO DAILY [facility] Stop: 04/17/19 08:59 Last Admin: 02/26/19 09:58 Dose: 1 tab Ondansetron HCl (Zofran Odt) 4 mg PO Q6HR PRN PRN Reason: Nausea Stop: 04/17/19 09:30 Pantoprazole Sodium (Protonix) 40 mg PO QDAC [facility] Stop: 04/18/19 07:29 Last Admin: 02/26/19 06:53 Dose: 40 mg Polyethylene Glycol (Miralax) 17 gm PO [facility] Stop: 04/17/19 20:59 Last Admin: 02/25/19 20:49 Dose: 17 gm Risperidone (Risperdal) 0.5 mg PO BID [facility]; Protocol Stop: 04/25/19 08:59 Last Admin: 02/26/19 09:59 Dose: 0.5 mg Simvastatin (Zocor) 20 mg PO HS [facility]; Protocol Stop: 04/17/19 20:59 Last Admin: 02/25/19 20:48 Dose: 20 mg Sodium Chloride (Nacl Tab) 1 gm PO DAILY [facility] Stop: 04/17/19 09:44 Last Admin: 02/26/19 09:59 Dose: 1 gm Tramadol HCl (Ultram) 25 mg PO Q8HR PRN PRN Reason: Pain (Moderate 4-6) Stop: 04/17/19 09:30 Zolpidem Tartrate (Ambien) 5 mg PO HS PRN PRN Reason: Insomnia Stop: 04/17/19 04:31 Last Admin: 02/24/19 21:23 Dose: 5 mg General: weak, demented, NAD HEENT: NC/AT Neck: Supple, No JVD Lungs: other (no acute respiratory distress on RA) Cardiovascular: RRR Abdomen: soft, non-tender Extremities: clear Neurological: no change Internal Medicine Assmt/Plan - Assessment Assessment: Dementia Depression Agitation HTN Hyperlipidemia DM GERD hx anemia - Plan Plan: Continue current treatment plan. Continue current medications Continue to monitor VS Monitor Diet/Nutritional support. Psych management per Psychiatry. Pain Management. PT/OT prn Safety precaution, Fall precaution, frequent nursing round. Supportive care. Continue collaborating with consulting specialists, case management and nursing team Nutritional Asmnt/Malnutr-PDOC - Dietary Evaluation Malnutrition Findings (Please click <Entered> for more info): Nutritional Asmnt/Malnutrition Start: 02/21/19 13: 58 Text: Status: Complete Freq: Protocol: Document 02/21/19 14:00 IRIS (Rec: 02/21/19 14:03 IRIS [id number]) Nutritional Asmnt/Malnutrition Patient General Information Nutritional Screening Moderate Risk Diagnosis Psychosis Pertinent Medical Hx/Surgical Hx HTN, DMT2- insulin dependent, Hyperlipidemia, Dementia, Depression, Anemia, Alzheimer s Disease Subjective Information Pt is a 88-year-old female admitted on 02/16 d/t constant yelling, not taking medication and being undirectable. Pt is currently eating an estimated 60% x3 days (average) per Meal/Nutrition Activity Record . Dietary is currently providing an estimated 2000 kcals and 120 gm Pro. Per pt PO intake, this is providing an estimated 1200 kcals and 70gm Pro, to meet an estimated 71% kcal and 100% Pro needs. Will continue to monitor pt PO intake trends. Pt was in the community room at time of visit getting ready for activities. Anthropometrics HT: 55 WT: 148 LB (67.27 kg) BMI: 24.68 (normal) GI/ Skin Integrity GI symptoms: soft, non-tender Kamron: 16 Skin Integrity:WNL, intact I/O: 1140/1 (+1139) Last BM: 02/19 x1 Diet Rx: Mechanical Soft, NCS, CRISTHIAN Estimated Energy Needs: ( Geriatric, CBW) 5320-2274 kcals (25-30 kcals/ kg) 67-80g Pro (1.0-1.2 g/kg) 7108-9049 ml (25-30 ml/kg) Current Diet Order/ Nutrition Support Mechanical Soft, NCS, CRISTHIAN Pertinent Medications Maalox (PRN), Plavix, Glutose 40% (PRN), Colace, Glucagen ( PRN), INS-SS, MOM (PRN), Megace, Theragran Pertinent Labs POC Glucose (last 24 hours): 117, 138, 106, 93 02/16: Na 132, Glucose 122, Alb 2.8, HDL 29, A1c 5.9% Nutritional Hx/Data Height 5 ft 5 in Height (Calculated Centimeters) 165.1 Current Weight (lbs) 148 lb Weight (Calculated Kilograms) 67.1 Weight (Calculated Grams) 66695.7 [place] Body Weight 125 LB (56.82 kg) % [place] Body Weight 118 Body Mass Index (BMI) 24.6 Weight Status Approriate GI Symptoms GI Symptoms None Last BM 02/19 x1 Skin Integrity/Comment: Kamron: Miko Skin Integrity: WNL, intact Current %PO Fair (50-74%) Estimated Nutritional Goals BEE in Kcals: Using Current wt Calories/Kcals/Kg 25-30 Kcals Calculated 4314-0134 Protein: Using Current wt Protein g/k.0-1.2 Protein Calculated 67-80 Fluid: ml 2018-0612 ml (25-30 ml/kg) Nutritional Problem 1. Problem Problem Impaired nutrient utilization Etiology r/t endocrine dysfunction Signs/Symptoms: aeb Hx DMT2 and labs POC Glucose (last 24 hours): 117, 138, 106, 93, A1c (02/16) 5.9%. Malnutrition Related to Morbid Obesity Malnutrition related to morbid obesity No Intervention/Recommendation Comments 1.Continue Mechanical Soft, NCS, CRISTHIAN diet as tolerated. 2.Continue antihyperglycemic medications for glucose control per MD order. Expected Outcomes/Goals Expected Outcomes/Goals 1.PO intake to continue to meet 75% of estimated nutritional needs. 2.Monitor PO intake, wt, nutrition related labs, and skin integrity. 3.F/U as low risk in 7-10 days , 02/28-03/03
--- NOTE | 2019-02-26 13:13 | Progress Notes ---
DATE: 02/26/2019 Case was discussed with staff of the patient, reviewed records. The patient continues to be confused, continues to be unable to make safe plan for self-care. Continues to have episodes of screaming. Continues to be unpredictable, impulsive. No side effects with the medication, no sedation, no nausea, no extrapyramidal symptoms. The patient is on Aricept 10 mg at bedtime, Risperdal 0.5 mg twice a day and we will continue outpatient group therapy, milieu therapy, adjust the medication as needed. JOB# [id number]
--- NOTE | 2019-02-26 18:58 | Progress Notes ---
DATE: 02/23/2019 SUBJECTIVE: Chart was reviewed and the patient interviewed. Also discussed the patient's condition with the staff and reviewed records and labs. The patient is still suspicious and is still severely paranoid. The patient also is still confused. She also still has episodes of yelling and screaming for no reason. She also still needs lots of redirections and also wants to be left alone. Otherwise, the patient continued to comply with taking Risperdal with no side effects. ASSESSMENT: The patient is still paranoid and agitated. TREATMENT PLAN: We will increase Risperdal to 0.5 mg twice a day. Also, continue monitoring her behavior and continue to followup closely. JOB# [id number]
[2019-02-26] MEDS: POLYETHYLENE GLYCOL 3350 17 GM PACK PO SCH (20:57)
[2019-02-27] MEDS: INSULIN LISPRO SLIDING SCALE 100 UNITS/ML UNIT SUBQ SCH ×4 (07:02→21:08)
[2019-02-27] MEDS: Pantoprazole 40 mg EC Tab PO SCH (07:02)
--- NOTE | 2019-02-27 09:34 | Progress Notes ---
DATE: SUBJECTIVE: Chart was reviewed and the patient interviewed. Also discussed the patient's condition with the staff and reviewed records and labs. The patient is still anxious and is still in irritable mood. The patient also is still labile and still has episodes of yelling and screaming for no apparent reason. She also still needs lots of redirection, but slightly easier to redirect her. She also continued to complain of abdominal pain at times. Otherwise, the patient is compliant with taking Aricept and Risperdal and Elavil with no other complaint. ASSESSMENT: The patient is still agitated. TREATMENT PLAN: Continue to monitor her behavior and her condition closely. Also, continue adjusting psychotropic medications and my work on behavioral modification. JOB# [id number]
--- NOTE | 2019-02-27 10:15 | Internal Medicine Prog Note ---
Internal Medicine Subjective - Subjective Service Date: 02/27/19 Patient seen and examined:: with staff, chart reviewed Patient is:: asleep, verbal, in bed, agitated, confused Patient Complaints of:: other (History of Alzheimer's disease.) Per staff patient has:: no adverse event, no episodes of fall, agitated Internal Medicine Objective - Results Recent Labs: Laboratory Last Values POC Glucose 114 MG/DL (70 - 105) H 02/27/19 06:46 - Physical Exam Vitals and I&O: Vital Signs Temp 97.8 F 02/27/19 06:50 Pulse 89 02/27/19 06:50 Resp 16 02/27/19 08:00 BP 151/78 02/27/19 06:50 Pulse Ox 97 02/27/19 06:50 Intake & Output 02/26/19 02/27/19 02/27/19 18:59 06:59 18:59 Intake Total 800 180 Balance 800 180 Intake: Oral 800 180 Other: # Voids 3 # Bowel Movements 2 Active Medications: Current Medications Acetaminophen (Tylenol) 650 mg PO Q4H PRN PRN Reason: mild pain 1-3 Stop: 04/17/19 04:37 Acetaminophen (Tylenol) 650 mg PO Q4H PRN PRN Reason: temp above 100.5 F Stop: 04/17/19 04:38 Al Hydrox/Mg Hydrox/Simethicone (Maalox) 30 ml PO Q6HR PRN PRN Reason: indigestion Stop: 04/17/19 09:30 Last Admin: 02/27/19 01:52 Dose: 30 ml Amitriptyline HCl (Elavil) 25 mg PO HS [facility]; Protocol Stop: 04/17/19 20:59 Last Admin: 02/26/19 20:56 Dose: 25 mg Clopidogrel Bisulfate (Plavix) 75 mg PO DAILY [facility] Stop: 04/17/19 09:44 Last Admin: 02/26/19 09:58 Dose: 75 mg Dextrose (Glutose 40%) 18.75 gm PO PRN PRN PRN Reason: BS Below 70 if tolerate po Stop: 04/17/19 06:18 Docusate Sodium (Colace) 100 mg PO Q12HR PRN PRN Reason: Constipation Stop: 04/17/19 09:30 Donepezil HCl (Aricept) 10 mg PO HS [facility] Stop: 04/22/19 20:59 Last Admin: 02/26/19 20:56 Dose: 10 mg Glucagon (Glucagen) 1 mg IM PRN PRN PRN Reason: BS Below 70 if not tolerate po Stop: 04/17/19 06:18 Guaifenesin/Dextromethorphan (Robitussin Dm) 10 ml PO Q6HR PRN PRN Reason: Cough Stop: 04/20/19 16:52 Insulin Human Lispro (Humalog Insulin Sliding Scale) 0 units SUBQ ACHS [facility]; Protocol Stop: 04/17/19 11:29 Last Admin: 02/27/19 07:02 Dose: Not Given Lorazepam (Ativan) 0.5 mg PO Q4HR PRN; Protocol PRN Reason: Anxiety Stop: 03/18/19 04:31 Last Admin: 02/25/19 16:48 Dose: 0.5 mg Magnesium Hydroxide (Milk Of Magnesia) 30 ml PO HS PRN PRN Reason: Constipation Megestrol Acetate (Megace) 400 mg PO QDAC [facility] Stop: 04/18/19 07:29 Last Admin: 02/27/19 07:01 Dose: 400 mg Multivitamins/Vitamin C (Theragran) 1 tab PO DAILY [facility] Stop: 04/17/19 08:59 Last Admin: 02/26/19 09:58 Dose: 1 tab Ondansetron HCl (Zofran Odt) 4 mg PO Q6HR PRN PRN Reason: Nausea Stop: 04/17/19 09:30 Pantoprazole Sodium (Protonix) 40 mg PO QDAC [facility] Stop: 04/18/19 07:29 Last Admin: 02/27/19 07:02 Dose: 40 mg Polyethylene Glycol (Miralax) 17 gm PO HS [facility] Stop: 04/17/19 20:59 Last Admin: 02/26/19 20:57 Dose: 17 gm Risperidone (Risperdal) 0.5 mg PO BID [facility]; Protocol Stop: 04/25/19 08:59 Last Admin: 02/26/19 17:32 Dose: 0.5 mg Simvastatin (Zocor) 20 mg PO HS [facility]; Protocol Stop: 04/17/19 20:59 Last Admin: 02/26/19 20:56 Dose: 20 mg Sodium Chloride (Nacl Tab) 1 gm PO DAILY [facility] Stop: 04/17/19 09:44 Last Admin: 02/26/19 09:59 Dose: 1 gm Tramadol HCl (Ultram) 25 mg PO Q8HR PRN PRN Reason: Pain (Moderate 4-6) Stop: 04/17/19 09:30 Zolpidem Tartrate (Ambien) 5 mg PO HS PRN PRN Reason: Insomnia Stop: 04/17/19 04:31 Last Admin: 02/26/19 20:56 Dose: 5 mg Physical Exam: Patient continues to need to be monitored, continues to be easily frustrated, has been c/o having intermittent abdominal pain and screaming episodes. General: weak, demented, NAD HEENT: NC/AT Neck: Supple, No JVD Lungs: other (no acute respiratory distress on RA) Cardiovascular: RRR Abdomen: soft, non-tender Extremities: clear Neurological: no change Internal Medicine Assmt/Plan - Assessment Assessment: Weak. Demented. Alzheimer's disease. Agitation. Dementia. Hypertension. Diabetes. Hyperlipidemia. Depression. History of Gastritis. History of Anemia. - Plan Plan: Continue present meds as directed Psych management as per Psych. Monitor vitals and labs. Monitor diet and nutritional support. Fall precaution. Pain management. Accu-check twice daily. Continue present care management. Nutritional Asmnt/Malnutr-PDOC - Dietary Evaluation Malnutrition Findings (Please click <Entered> for more info): Nutritional Asmnt/Malnutrition Start: 02/21/19 13: 58 Text: Status: Complete Freq: Protocol: Document 02/21/19 14:00 IRIS (Rec: 02/21/19 14:03 [email or web address] [id number]) Nutritional Asmnt/Malnutrition Patient General Information Nutritional Screening Moderate Risk Diagnosis Psychosis Pertinent Medical Hx/Surgical Hx HTN, DMT2- insulin dependent, Hyperlipidemia, Dementia, Depression, Anemia, Alzheimer s Disease Subjective Information Pt is a 88-year-old female admitted on 02/16 d/t constant yelling, not taking medication and being undirectable. Pt is currently eating an estimated 60% x3 days (average) per Meal/Nutrition Activity Record . Dietary is currently providing an estimated 2000 kcals and 120 gm Pro. Per pt PO intake, this is providing an estimated 1200 kcals and 70gm Pro, to meet an estimated 71% kcal and 100% Pro needs. Will continue to monitor pt PO intake trends. Pt was in the community room at time of visit getting ready for activities. Anthropometrics HT: 55 WT: 148 LB (67.27 kg) BMI: 24.68 (normal) GI/ Skin Integrity GI symptoms: soft, non-tender Kamron: 16 Skin Integrity:WNL, intact I/O: 1140/1 (+1139) Last BM: 02/19 x1 Diet Rx: Mechanical Soft, NCS, CRISTHIAN Estimated Energy Needs: ( Geriatric, CBW) 8662-1525 kcals (25-30 kcals/ kg) 67-80g Pro (1.0-1.2 g/kg) 9503-4647 ml (25-30 ml/kg) Current Diet Order/ Nutrition Support Mechanical Soft, NCS, CRISTHIAN Pertinent Medications Maalox (PRN), Plavix, Glutose 40% (PRN), Colace, Glucagen ( PRN), INS-SS, MOM (PRN), Megace, Theragran Pertinent Labs POC Glucose (last 24 hours): 117, 138, 106, 93 02/16: Na 132, Glucose 122, Alb 2.8, HDL 29, A1c 5.9% Nutritional Hx/Data Height 1.65 m Height (Calculated Centimeters) 165.1 Current Weight (lbs) 67.132 kg Weight (Calculated Kilograms) 67.1 Weight (Calculated Grams) 60160.7 [place] Body Weight 125 LB (56.82 kg) % [place] Body Weight 118 Body Mass Index (BMI) 24.6 Weight Status Approriate GI Symptoms GI Symptoms None Last BM 02/19 x1 Skin Integrity/Comment: Kamron: 16 Skin Integrity: WNL, intact Current %PO Fair (50-74%) Estimated Nutritional Goals BEE in Kcals: Using Current wt Calories/Kcals/Kg 25-30 Kcals Calculated 9918-5993 Protein: Using Current wt Protein g/k.0-1.2 Protein Calculated 67-80 Fluid: ml 5015-4601 ml (25-30 ml/kg) Nutritional Problem 1. Problem Problem Impaired nutrient utilization Etiology r/t endocrine dysfunction Signs/Symptoms: aeb Hx DMT2 and labs POC Glucose (last 24 hours): 117, 138, 106, 93, A1c (02/16) 5.9%. Malnutrition Related to Morbid Obesity Malnutrition related to morbid obesity No Intervention/Recommendation Comments 1.Continue Mechanical Soft, NCS, CRISTHIAN diet as tolerated. 2.Continue antihyperglycemic medications for glucose control per MD order. Expected Outcomes/Goals Expected Outcomes/Goals 1.PO intake to continue to meet 75% of estimated nutritional needs. 2.Monitor PO intake, wt, nutrition related labs, and skin integrity. 3.F/U as low risk in 7-10 days , 02/28-03/03
--- NOTE | 2019-02-27 10:24 | Internal Medicine Prog Note ---
Internal Medicine Subjective - Subjective Patient is:: awake, verbal, in bed, agitated, confused Patient Complaints of:: other (History of Alzheimer's disease.) Per staff patient has:: no adverse event, no episodes of fall, agitated Internal Medicine Objective - Results Recent Labs: Laboratory Last Values POC Glucose 114 MG/DL (70 - 105) H 02/27/19 06:46 - Physical Exam Vitals and I&O: Vital Signs Temp 97.8 F 02/27/19 06:50 Pulse 89 02/27/19 06:50 Resp 16 02/27/19 08:00 BP 151/78 02/27/19 06:50 Pulse Ox 97 02/27/19 06:50 Intake & Output 02/26/19 02/27/19 02/27/19 18:59 06:59 18:59 Intake Total 800 180 Balance 800 180 Intake: Oral 800 180 Other: # Voids 3 # Bowel Movements 2 Active Medications: Current Medications Acetaminophen (Tylenol) 650 mg PO Q4H PRN PRN Reason: mild pain 1-3 Stop: 04/17/19 04:37 Acetaminophen (Tylenol) 650 mg PO Q4H PRN PRN Reason: temp above 100.5 F Stop: 04/17/19 04:38 Al Hydrox/Mg Hydrox/Simethicone (Maalox) 30 ml PO Q6HR PRN PRN Reason: indigestion Stop: 04/17/19 09:30 Last Admin: 02/27/19 01:52 Dose: 30 ml Amitriptyline HCl (Elavil) 25 mg PO HS REPLACED BY [facility]; Protocol Stop: 04/17/19 20:59 Last Admin: 02/26/19 20:56 Dose: 25 mg Clopidogrel Bisulfate (Plavix) 75 mg PO DAILY [facility] Stop: 04/17/19 09:44 Last Admin: 02/26/19 09:58 Dose: 75 mg Dextrose (Glutose 40%) 18.75 gm PO PRN PRN PRN Reason: BS Below 70 if tolerate po Stop: 04/17/19 06:18 Docusate Sodium (Colace) 100 mg PO Q12HR PRN PRN Reason: Constipation Stop: 04/17/19 09:30 Donepezil HCl (Aricept) 10 mg PO HS [facility]PL[facility] Stop: 04/22/19 20:59 Last Admin: 02/26/19 20:56 Dose: 10 mg Glucagon (Glucagen) 1 mg IM PRN PRN PRN Reason: BS Below 70 if not tolerate po Stop: 04/17/19 06:18 Guaifenesin/Dextromethorphan (Robitussin Dm) 10 ml PO Q6HR PRN PRN Reason: Cough Stop: 04/20/19 16:52 Insulin Human Lispro (Humalog Insulin Sliding Scale) 0 units SUBQ ACHS [facility]PL[facility]ED BY [facility]; Protocol Stop: 04/17/19 11:29 Last Admin: 02/27/19 07:02 Dose: Not Given Lorazepam (Ativan) 0.5 mg PO Q4HR PRN; Protocol PRN Reason: Anxiety Stop: 03/18/19 04:31 Last Admin: 02/25/19 16:48 Dose: 0.5 mg Magnesium Hydroxide (Milk Of Magnesia) 30 ml PO HS PRN PRN Reason: Constipation Megestrol Acetate (Megace) 400 mg PO QDAC [facility]PL[facility] Stop: 04/18/19 07:29 Last Admin: 02/27/19 07:01 Dose: 400 mg Multivitamins/Vitamin C (Theragran) 1 tab PO DAILY [facility] Stop: 04/17/19 08:59 Last Admin: 02/26/19 09:58 Dose: 1 tab Ondansetron HCl (Zofran Odt) 4 mg PO Q6HR PRN PRN Reason: Nausea Stop: 04/17/19 09:30 Pantoprazole Sodium (Protonix) 40 mg PO QDAC [facility]PL[facility] Stop: 04/18/19 07:29 Last Admin: 02/27/19 07:02 Dose: 40 mg Polyethylene Glycol (Miralax) 17 gm PO HS [facility]PL[facility] Stop: 04/17/19 20:59 Last Admin: 02/26/19 20:57 Dose: 17 gm Risperidone (Risperdal) 0.5 mg PO BID [facility]PL[facility]ED BY [facility]; Protocol Stop: 04/25/19 08:59 Last Admin: 02/26/19 17:32 Dose: 0.5 mg Simvastatin (Zocor) 20 mg PO HS [facility]PL[facility] BY [facility]; Protocol Stop: 04/17/19 20:59 Last Admin: 02/26/19 20:56 Dose: 20 mg Sodium Chloride (Nacl Tab) 1 gm PO DAILY [facility] Stop: 04/17/19 09:44 Last Admin: 02/26/19 09:59 Dose: 1 gm Tramadol HCl (Ultram) 25 mg PO Q8HR PRN PRN Reason: Pain (Moderate 4-6) Stop: 04/17/19 09:30 Zolpidem Tartrate (Ambien) 5 mg PO HS PRN PRN Reason: Insomnia Stop: 04/17/19 04:31 Last Admin: 02/26/19 20:56 Dose: 5 mg General: weak, demented, NAD HEENT: NC/AT Neck: Supple, No JVD Lungs: other (no acute respiratory distress on RA) Cardiovascular: RRR Abdomen: soft, non-tender Extremities: clear Neurological: no change Internal Medicine Assmt/Plan - Assessment Assessment: Dementia Depression Agitation HTN Hyperlipidemia DM GERD hx anemia - Plan Plan: Continue current treatment plan. Continue current medications Continue to monitor VS Monitor Diet/Nutritional support. Psych management per Psychiatry. Pain Management. PT/OT prn Safety precaution, Fall precaution, frequent nursing round. Supportive care. Continue collaborating with consulting specialists, case management and nursing team Nutritional Asmnt/Malnutr-PDOC - Dietary Evaluation Malnutrition Findings (Please click <Entered> for more info): Nutritional Asmnt/Malnutrition Start: 02/21/19 13: 58 Text: Status: Complete Freq: Protocol: Document 02/21/19 14:00 IRIS (Rec: 02/21/19 14:03 IRIS [id number]) Nutritional Asmnt/Malnutrition Patient General Information Nutritional Screening Moderate Risk Diagnosis Psychosis Pertinent Medical Hx/Surgical Hx HTN, DMT2- insulin dependent, Hyperlipidemia, Dementia, Depression, Anemia, Alzheimer s Disease Subjective Information Pt is a 88-year-old female admitted on 02/16 d/t constant yelling, not taking medication and being undirectable. Pt is currently eating an estimated 60% x3 days (average) per Meal/Nutrition Activity Record . Dietary is currently providing an estimated 2000 kcals and 120 gm Pro. Per pt PO intake, this is providing an estimated 1200 kcals and 70gm Pro, to meet an estimated 71% kcal and 100% Pro needs. Will continue to monitor pt PO intake trends. Pt was in the community room at time of visit getting ready for activities. Anthropometrics HT: 55 WT: 148 LB (67.27 kg) BMI: 24.68 (normal) GI/ Skin Integrity GI symptoms: soft, non-tender Kamron: 16 Skin Integrity:WNL, intact I/O: 1140/1 (+1139) Last BM: 02/19 x1 Diet Rx: Mechanical Soft, NCS, CRISTHIAN Estimated Energy Needs: ( Geriatric, CBW) 0175-6247 kcals (25-30 kcals/ kg) 67-80g Pro (1.0-1.2 g/kg) 0102-5816 ml (25-30 ml/kg) Current Diet Order/ Nutrition Support Mechanical Soft, NCS, CRISTHIAN Pertinent Medications Maalox (PRN), Plavix, Glutose 40% (PRN), Colace, Glucagen ( PRN), INS-SS, MOM (PRN), Megace, Theragran Pertinent Labs POC Glucose (last 24 hours): 117, 138, 106, 93 02/16: Na 132, Glucose 122, Alb 2.8, HDL 29, A1c 5.9% Nutritional Hx/Data Height 5 ft 5 in Height (Calculated Centimeters) 165.1 Current Weight (lbs) 148 lb Weight (Calculated Kilograms) 67.1 Weight (Calculated Grams) 52782.7 [place] Body Weight 125 LB (56.82 kg) % [place] Body Weight 118 Body Mass Index (BMI) 24.6 Weight Status Approriate GI Symptoms GI Symptoms None Last BM 02/19 x1 Skin Integrity/Comment: Kamron: Miko Skin Integrity: WNL, intact Current %PO Fair (50-74%) Estimated Nutritional Goals BEE in Kcals: Using Current wt Calories/Kcals/Kg 25-30 Kcals Calculated 8714-0808 Protein: Using Current wt Protein g/k.0-1.2 Protein Calculated 67-80 Fluid: ml 9479-2176 ml (25-30 ml/kg) Nutritional Problem 1. Problem Problem Impaired nutrient utilization Etiology r/t endocrine dysfunction Signs/Symptoms: aeb Hx DMT2 and labs POC Glucose (last 24 hours): 117, 138, 106, 93, A1c (02/16) 5.9%. Malnutrition Related to Morbid Obesity Malnutrition related to morbid obesity No Intervention/Recommendation Comments 1.Continue Mechanical Soft, NCS, CRISTHIAN diet as tolerated. 2.Continue antihyperglycemic medications for glucose control per MD order. Expected Outcomes/Goals Expected Outcomes/Goals 1.PO intake to continue to meet 75% of estimated nutritional needs. 2.Monitor PO intake, wt, nutrition related labs, and skin integrity. 3.F/U as low risk in 7-10 days , 02/28-03/03
[2019-02-27] MEDS: Multivitamin Tab PO SCH (10:38)
[2019-02-27] MEDS: POLYETHYLENE GLYCOL 3350 17 GM PACK PO SCH (21:09)
[2019-02-28] MEDS: Pantoprazole 40 mg EC Tab PO SCH (06:31)
[2019-02-28] MEDS: INSULIN LISPRO SLIDING SCALE 100 UNITS/ML UNIT SUBQ SCH ×5 (06:31→20:59)
--- NOTE | 2019-02-28 07:26 | Progress Notes ---
DATE: PSYCHIATRIC PROGRESS NOTE SUBJECTIVE: Chart was reviewed and the patient interviewed. Also discussed the patient's condition with the staff and reviewed records and labs. The patient is still in a depressed mood and is still suspicious and paranoid. The patient also is still withdrawn and interacting minimally with others. She also still needs lots of redirections and still has episodes of yelling and screaming. Otherwise, the patient is compliant with taking her medications with no side effects of Risperdal, Aricept, or Elavil. The patient also does not complain today of abdominal pain as she was before. ASSESSMENT: The patient is still psychotic and needs close monitoring. TREATMENT PLAN: Continue monitoring behavior and condition closely. Also, continue to work on her ineffective coping and adjusting psychotropic medications. JOB# [id number]
[2019-02-28] MEDS: Multivitamin Tab PO SCH (09:11)
[2019-02-28] MEDS: POLYETHYLENE GLYCOL 3350 17 GM PACK PO SCH ×2 (20:58→22:29)
[2019-03-01] MEDS: Pantoprazole 40 mg EC Tab PO SCH (06:53)
[2019-03-01] MEDS: INSULIN LISPRO SLIDING SCALE 100 UNITS/ML UNIT SUBQ SCH ×4 (06:54→21:22)
[2019-03-01] MEDS: Multivitamin Tab PO SCH (08:41)
--- NOTE | 2019-03-01 16:16 | Internal Medicine Prog Note ---
Internal Medicine Subjective - Subjective Service Date: 03/01/19 Patient is:: awake, verbal, in bed, agitated, confused Patient Complaints of:: other (History of Alzheimer's disease.) Per staff patient has:: no adverse event, no episodes of fall, agitated Internal Medicine Objective - Results Recent Labs: Laboratory Last Values POC Glucose 87 MG/DL (70 - 105) 03/01/19 12:05 - Physical Exam Vitals and I&O: Vital Signs Temp 98.0 F 03/01/19 14:00 Pulse 99 03/01/19 14:00 Resp 20 03/01/19 14:00 BP 124/69 03/01/19 14:00 Pulse Ox 95 03/01/19 14:00 Intake & Output 02/28/19 03/01/19 03/01/19 18:59 06:59 18:59 Intake Total 800 120 Balance 800 120 Intake: Oral 800 120 Other: # Voids 3 1 # Bowel Movements 0 1 Active Medications: Current Medications Acetaminophen (Tylenol) 650 mg PO Q4H PRN PRN Reason: mild pain 1-3 Stop: 04/17/19 04:37 Acetaminophen (Tylenol) 650 mg PO Q4H PRN PRN Reason: temp above 100.5 F Stop: 04/17/19 04:38 Al Hydrox/Mg Hydrox/Simethicone (Maalox) 30 ml PO Q6HR PRN PRN Reason: indigestion Stop: 04/17/19 09:30 Last Admin: 02/27/19 01:52 Dose: 30 ml Amitriptyline HCl (Elavil) 25 mg PO HS [facility]; Protocol Stop: 04/17/19 20:59 Last Admin: 02/28/19 22:27 Dose: Not Given Clopidogrel Bisulfate (Plavix) 75 mg PO DAILY [facility] Stop: 04/17/19 09:44 Last Admin: 03/01/19 08:41 Dose: 75 mg Dextrose (Glutose 40%) 18.75 gm PO PRN PRN PRN Reason: BS Below 70 if tolerate po Stop: 04/17/19 06:18 Docusate Sodium (Colace) 100 mg PO Q12HR PRN PRN Reason: Constipation Stop: 04/17/19 09:30 Donepezil HCl (Aricept) 10 mg PO HS [facility] Stop: 04/22/19 20:59 Last Admin: 02/28/19 22:28 Dose: Not Given Glucagon (Glucagen) 1 mg IM PRN PRN PRN Reason: BS Below 70 if not tolerate po Stop: 04/17/19 06:18 Guaifenesin/Dextromethorphan (Robitussin Dm) 10 ml PO Q6HR PRN PRN Reason: Cough Stop: 04/20/19 16:52 Insulin Human Lispro (Humalog Insulin Sliding Scale) 0 units SUBQ ACHS [facility]; Protocol Stop: 04/17/19 11:29 Last Admin: 03/01/19 13:03 Dose: Not Given Lorazepam (Ativan) 0.5 mg PO Q4HR PRN; Protocol PRN Reason: Anxiety Stop: 03/18/19 04:31 Last Admin: 03/01/19 00:12 Dose: 0.5 mg Magnesium Hydroxide (Milk Of Magnesia) 30 ml PO HS PRN PRN Reason: Constipation Megestrol Acetate (Megace) 400 mg PO QDAC [facility] Stop: 04/18/19 07:29 Last Admin: 03/01/19 06:53 Dose: 400 mg Multivitamins/Vitamin C (Theragran) 1 tab PO DAILY [facility] Stop: 04/17/19 08:59 Last Admin: 03/01/19 08:41 Dose: 1 tab Ondansetron HCl (Zofran Odt) 4 mg PO Q6HR PRN PRN Reason: Nausea Stop: 04/17/19 09:30 Pantoprazole Sodium (Protonix) 40 mg PO QDAC [facility] Stop: 04/18/19 07:29 Last Admin: 03/01/19 06:53 Dose: 40 mg Polyethylene Glycol (Miralax) 17 gm PO HS [facility] Stop: 04/17/19 20:59 Last Admin: 02/28/19 22:29 Dose: Not Given Risperidone (Risperdal) 0.5 mg PO BID [facility]; Protocol Stop: 04/25/19 08:59 Last Admin: 03/01/19 08:41 Dose: 0.5 mg Simvastatin (Zocor) 20 mg PO HS [facility]; Protocol Stop: 04/17/19 20:59 Last Admin: 02/28/19 22:29 Dose: Not Given Sodium Chloride (Nacl Tab) 1 gm PO DAILY [facility] Stop: 04/17/19 09:44 Last Admin: 03/01/19 08:41 Dose: 1 gm Tramadol HCl (Ultram) 25 mg PO Q8HR PRN PRN Reason: Pain (Moderate 4-6) Stop: 04/17/19 09:30 Zolpidem Tartrate (Ambien) 5 mg PO HS PRN PRN Reason: Insomnia Stop: 04/17/19 04:31 Last Admin: 02/26/19 20:56 Dose: 5 mg General: weak, demented, NAD HEENT: NC/AT Neck: Supple, No JVD Lungs: other (no acute respiratory distress on RA) Cardiovascular: RRR Abdomen: soft, non-tender Extremities: clear Neurological: no change Internal Medicine Assmt/Plan - Assessment Assessment: Dementia Depression Agitation HTN Hyperlipidemia DM GERD hx anemia - Plan Plan: Continue current treatment plan. Continue current medications Continue to monitor VS Monitor Diet/Nutritional support. Psych management per Psychiatry. Pain Management. PT/OT prn Safety precaution, Fall precaution, frequent nursing round. Supportive care. Continue collaborating with consulting specialists, case management and nursing team Nutritional Asmnt/Malnutr-PDOC - Dietary Evaluation Malnutrition Findings (Please click <Entered> for more info): Nutritional Asmnt/Malnutrition Start: 02/21/19 13: 58 Text: Status: Complete Freq: Protocol: Document 02/21/19 14:00 IRIS (Rec: 02/21/19 14:03 IRIS [id number]) Nutritional Asmnt/Malnutrition Patient General Information Nutritional Screening Moderate Risk Diagnosis Psychosis Pertinent Medical Hx/Surgical Hx HTN, DMT2- insulin dependent, Hyperlipidemia, Dementia, Depression, Anemia, Alzheimer s Disease Subjective Information Pt is a 88-year-old female admitted on 02/16 d/t constant yelling, not taking medication and being undirectable. Pt is currently eating an estimated 60% x3 days (average) per Meal/Nutrition Activity Record . Dietary is currently providing an estimated 2000 kcals and 120 gm Pro. Per pt PO intake, this is providing an estimated 1200 kcals and 70gm Pro, to meet an estimated 71% kcal and 100% Pro needs. Will continue to monitor pt PO intake trends. Pt was in the community room at time of visit getting ready for activities. Anthropometrics HT: 55 WT: 148 LB (67.27 kg) BMI: 24.68 (normal) GI/ Skin Integrity GI symptoms: soft, non-tender Kamron: 16 Skin Integrity:WNL, intact I/O: 1140/1 (+1139) Last BM: 02/19 x1 Diet Rx: Mechanical Soft, NCS, CRISTHIAN Estimated Energy Needs: ( Geriatric, CBW) 3935-4857 kcals (25-30 kcals/ kg) 67-80g Pro (1.0-1.2 g/kg) 7573-9229 ml (25-30 ml/kg) Current Diet Order/ Nutrition Support Mechanical Soft, NCS, CRISTHIAN Pertinent Medications Maalox (PRN), Plavix, Glutose 40% (PRN), Colace, Glucagen ( PRN), INS-SS, MOM (PRN), Megace, Theragran Pertinent Labs POC Glucose (last 24 hours): 117, 138, 106, 93 02/16: Na 132, Glucose 122, Alb 2.8, HDL 29, A1c 5.9% Nutritional Hx/Data Height 5 ft 5 in Height (Calculated Centimeters) 165.1 Current Weight (lbs) 148 lb Weight (Calculated Kilograms) 67.1 Weight (Calculated Grams) 49240.7 [place] Body Weight 125 LB (56.82 kg) % [place] Body Weight 118 Body Mass Index (BMI) 24.6 Weight Status Approriate GI Symptoms GI Symptoms None Last BM 02/19 x1 Skin Integrity/Comment: Kamron: Miko Skin Integrity: WNL, intact Current %PO Fair (50-74%) Estimated Nutritional Goals BEE in Kcals: Using Current wt Calories/Kcals/Kg 25-30 Kcals Calculated 1179-8440 Protein: Using Current wt Protein g/k.0-1.2 Protein Calculated 67-80 Fluid: ml 9771-8049 ml (25-30 ml/kg) Nutritional Problem 1. Problem Problem Impaired nutrient utilization Etiology r/t endocrine dysfunction Signs/Symptoms: aeb Hx DMT2 and labs POC Glucose (last 24 hours): 117, 138, 106, 93, A1c (02/16) 5.9%. Malnutrition Related to Morbid Obesity Malnutrition related to morbid obesity No Intervention/Recommendation Comments 1.Continue Mechanical Soft, NCS, CRISTHIAN diet as tolerated. 2.Continue antihyperglycemic medications for glucose control per MD order. Expected Outcomes/Goals Expected Outcomes/Goals 1.PO intake to continue to meet 75% of estimated nutritional needs. 2.Monitor PO intake, wt, nutrition related labs, and skin integrity. 3.F/U as low risk in 7-10 days , 02/28-03/03
[2019-03-01] MEDS: POLYETHYLENE GLYCOL 3350 17 GM PACK PO SCH (21:12)
--- NOTE | 2019-03-01 22:04 | Progress Notes ---
DATE: SUBJECTIVE: Chart was reviewed and the patient interviewed. Also discussed the patient's condition with the staff and reviewed records and labs. The patient is still confused and guarded. The patient also is still rambling in [place]ese language and difficulty to understand her. The patient also still needs redirections and she still seems to be paranoid. On the other hand, the patient seems to be slightly calmer and decreased yelling and screaming. The patient did take her medications in the morning, but refused to take her medications in the evening. ASSESSMENT: The patient is still agitated and is still paranoid. TREATMENT PLAN: Continue to monitor her behavior and condition. Also, continue Risperdal 0.5 mg twice a day and continue to followup. [facility]# [id number]
[2019-03-02] MEDS: INSULIN LISPRO SLIDING SCALE 100 UNITS/ML UNIT SUBQ SCH ×4 (06:48→20:45)
[2019-03-02] MEDS: Pantoprazole 40 mg EC Tab PO SCH (06:55)
[2019-03-02] MEDS: Multivitamin Tab PO SCH (08:26)
--- NOTE | 2019-03-02 15:57 | Internal Medicine Prog Note ---
Internal Medicine Subjective - Subjective Service Date: 03/02/19 Patient is:: awake, verbal, in bed, agitated, confused Patient Complaints of:: other (History of Alzheimer's disease.) Per staff patient has:: no adverse event, no episodes of fall, agitated Internal Medicine Objective - Results Recent Labs: Laboratory Last Values POC Glucose 101 MG/DL (70 - 105) 03/02/19 11:22 - Physical Exam Vitals and I&O: Vital Signs Temp 98.2 F 03/02/19 07:25 Pulse 73 03/02/19 07:25 Resp 17 03/02/19 08:00 BP 127/72 03/02/19 07:25 Pulse Ox 95 03/02/19 07:25 Intake & Output 03/01/19 03/02/19 03/02/19 18:59 06:59 18:59 Intake Total 1200 120 120 Balance 1200 120 120 Intake: Oral 960 120 120 Other 240 Other: # Voids 3 2 2 # Bowel Movements 0 0 0 Active Medications: Current Medications Acetaminophen (Tylenol) 650 mg PO Q4H PRN PRN Reason: mild pain 1-3 Stop: 04/17/19 04:37 Acetaminophen (Tylenol) 650 mg PO Q4H PRN PRN Reason: temp above 100.5 F Stop: 04/17/19 04:38 Al Hydrox/Mg Hydrox/Simethicone (Maalox) 30 ml PO Q6HR PRN PRN Reason: indigestion Stop: 04/17/19 09:30 Last Admin: 02/27/19 01:52 Dose: 30 ml Clopidogrel Bisulfate (Plavix) 75 mg PO DAILY [facility] Stop: 04/17/19 09:44 Last Admin: 03/02/19 08:26 Dose: 75 mg Dextrose (Glutose 40%) 18.75 gm PO PRN PRN PRN Reason: BS Below 70 if tolerate po Stop: 04/17/19 06:18 Docusate Sodium (Colace) 100 mg PO Q12HR PRN PRN Reason: Constipation Stop: 04/17/19 09:30 Donepezil HCl (Aricept) 10 mg PO HS [facility] Stop: 04/22/19 20:59 Last Admin: 03/01/19 21:12 Dose: 10 mg Glucagon (Glucagen) 1 mg IM PRN PRN PRN Reason: BS Below 70 if not tolerate po Stop: 04/17/19 06:18 Guaifenesin/Dextromethorphan (Robitussin Dm) 10 ml PO Q6HR PRN PRN Reason: Cough Stop: 04/20/19 16:52 Insulin Human Lispro (Humalog Insulin Sliding Scale) 0 units SUBQ ACHS [facility]; Protocol Stop: 04/17/19 11:29 Last Admin: 03/02/19 11:38 Dose: Not Given Lorazepam (Ativan) 0.5 mg PO Q4HR PRN; Protocol PRN Reason: Anxiety Stop: 03/18/19 04:31 Last Admin: 03/02/19 00:58 Dose: 0.5 mg Magnesium Hydroxide (Milk Of Magnesia) 30 ml PO HS PRN PRN Reason: Constipation Megestrol Acetate (Megace) 400 mg PO QDAC [facility] Stop: 04/18/19 07:29 Last Admin: 03/02/19 06:55 Dose: Not Given Multivitamins/Vitamin C (Theragran) 1 tab PO DAILY [facility] Stop: 04/17/19 08:59 Last Admin: 03/02/19 08:26 Dose: 1 tab Ondansetron HCl (Zofran Odt) 4 mg PO Q6HR PRN PRN Reason: Nausea Stop: 04/17/19 09:30 Pantoprazole Sodium (Protonix) 40 mg PO QDAC [facility] Stop: 04/18/19 07:29 Last Admin: 03/02/19 06:55 Dose: Not Given Polyethylene Glycol (Miralax) 17 gm PO HS [facility] Stop: 04/17/19 20:59 Last Admin: 03/01/19 21:12 Dose: 17 gm Risperidone (Risperdal) 1 mg PO BID [facility]; Protocol Stop: 05/01/19 08:59 Last Admin: 03/02/19 09:42 Dose: 1 mg Simvastatin (Zocor) 20 mg PO HS [facility]; Protocol Stop: 04/17/19 20:59 Last Admin: 03/01/19 21:12 Dose: 20 mg Sodium Chloride (Nacl Tab) 1 gm PO DAILY [facility] Stop: 04/17/19 09:44 Last Admin: 03/02/19 08:26 Dose: 1 gm Tramadol HCl (Ultram) 25 mg PO Q8HR PRN PRN Reason: Pain (Moderate 4-6) Stop: 04/17/19 09:30 Trazodone HCl (Desyrel) 50 mg PO HS [facility]; Protocol Stop: 05/01/19 20:59 Zolpidem Tartrate (Ambien) 5 mg PO HS PRN PRN Reason: Insomnia Stop: 04/17/19 04:31 Last Admin: 03/01/19 22:01 Dose: 5 mg General: weak, demented, NAD HEENT: NC/AT Neck: Supple, No JVD Lungs: other (no acute respiratory distress on RA) Cardiovascular: RRR Abdomen: soft, non-tender Extremities: clear Neurological: no change Internal Medicine Assmt/Plan - Assessment Assessment: Dementia Depression Agitation HTN Hyperlipidemia DM GERD hx anemia - Plan Plan: Continue current treatment plan. Continue current medications Continue to monitor VS Monitor Diet/Nutritional support. Psych management per Psychiatry. Pain Management. PT/OT prn Safety precaution, Fall precaution, frequent nursing round. Supportive care. Continue collaborating with consulting specialists, case management and nursing team Nutritional Asmnt/Malnutr-PDOC - Dietary Evaluation Malnutrition Findings (Please click <Entered> for more info): Nutritional Asmnt/Malnutrition Start: 02/21/19 13: 58 Text: Status: Complete Freq: Protocol: Document 02/21/19 14:00 IRIS (Rec: 02/21/19 14:03 [email or web address] [id number]) Nutritional Asmnt/Malnutrition Patient General Information Nutritional Screening Moderate Risk Diagnosis Psychosis Pertinent Medical Hx/Surgical Hx HTN, DMT2- insulin dependent, Hyperlipidemia, Dementia, Depression, Anemia, Alzheimer s Disease Subjective Information Pt is a 88-year-old female admitted on 02/16 d/t constant yelling, not taking medication and being undirectable. Pt is currently eating an estimated 60% x3 days (average) per Meal/Nutrition Activity Record . Dietary is currently providing an estimated 2000 kcals and 120 gm Pro. Per pt PO intake, this is providing an estimated 1200 kcals and 70gm Pro, to meet an estimated 71% kcal and 100% Pro needs. Will continue to monitor pt PO intake trends. Pt was in the community room at time of visit getting ready for activities. Anthropometrics HT: 55 WT: 148 LB (67.27 kg) BMI: 24.68 (normal) GI/ Skin Integrity GI symptoms: soft, non-tender Kamron: 16 Skin Integrity:WNL, intact I/O: 1140/1 (+1139) Last BM: 02/19 x1 Diet Rx: Mechanical Soft, NCS, CRISTHIAN Estimated Energy Needs: ( Geriatric, CBW) 2898-1367 kcals (25-30 kcals/ kg) 67-80g Pro (1.0-1.2 g/kg) 3400-1227 ml (25-30 ml/kg) Current Diet Order/ Nutrition Support Mechanical Soft, NCS, CRISTHIAN Pertinent Medications Maalox (PRN), Plavix, Glutose 40% (PRN), Colace, Glucagen ( PRN), INS-SS, MOM (PRN), Megace, Theragran Pertinent Labs POC Glucose (last 24 hours): 117, 138, 106, 93 02/16: Na 132, Glucose 122, Alb 2.8, HDL 29, A1c 5.9% Nutritional Hx/Data Height 5 ft 5 in Height (Calculated Centimeters) 165.1 Current Weight (lbs) 148 lb Weight (Calculated Kilograms) 67.1 Weight (Calculated Grams) 46990.7 [place] Body Weight 125 LB (56.82 kg) % [place] Body Weight 118 Body Mass Index (BMI) 24.6 Weight Status Approriate GI Symptoms GI Symptoms None Last BM 02/19 x1 Skin Integrity/Comment: Kamron: Miko Skin Integrity: WNL, intact Current %PO Fair (50-74%) Estimated Nutritional Goals BEE in Kcals: Using Current wt Calories/Kcals/Kg 25-30 Kcals Calculated 2301-5864 Protein: Using Current wt Protein g/k.0-1.2 Protein Calculated 67-80 Fluid: ml 5574-1964 ml (25-30 ml/kg) Nutritional Problem 1. Problem Problem Impaired nutrient utilization Etiology r/t endocrine dysfunction Signs/Symptoms: aeb Hx DMT2 and labs POC Glucose (last 24 hours): 117, 138, 106, 93, A1c (02/16) 5.9%. Malnutrition Related to Morbid Obesity Malnutrition related to morbid obesity No Intervention/Recommendation Comments 1.Continue Mechanical Soft, NCS, CRISTHIAN diet as tolerated. 2.Continue antihyperglycemic medications for glucose control per MD order. Expected Outcomes/Goals Expected Outcomes/Goals 1.PO intake to continue to meet 75% of estimated nutritional needs. 2.Monitor PO intake, wt, nutrition related labs, and skin integrity. 3.F/U as low risk in 7-10 days , 02/28-03/03
[2019-03-02] MEDS: POLYETHYLENE GLYCOL 3350 17 GM PACK PO SCH (20:44)
--- NOTE | 2019-03-03 02:48 | Progress Notes ---
DATE: 03/02/2019 SUBJECTIVE: Chart was reviewed and the patient interviewed. Also discussed the patient's condition with the staff and reviewed records and labs. Patient continued yelling and screaming in [place] language. The patient also is confused and restless. She also is still resisting care and resisting taking care psychotropic medications at times. She has been taking it, but with prompts from staff. The patient also has difficulty sleeping at night, and she did not sleep most of last night according to staff. ASSESSMENT: The patient is still agitated and psychotic. TREATMENT PLAN: We will discontinue Elavil, and we will start the patient on trazodone 50 mg at bedtime. Also, continue Risperdal at a dose of 1 mg twice a day. Also, continue to work on her irritability and agitation and behavioral modification. JOB# [id number]
[2019-03-03] MEDS: Pantoprazole 40 mg EC Tab PO SCH (06:56)
[2019-03-03] MEDS: INSULIN LISPRO SLIDING SCALE 100 UNITS/ML UNIT SUBQ SCH ×4 (06:56→21:20)
[2019-03-03] MEDS: Multivitamin Tab PO SCH (08:25)
--- NOTE | 2019-03-03 09:07 | Progress Notes ---
DATE: 03/03/2019 SUBJECTIVE: Chart was reviewed and the patient interviewed. Also discussed the patient's condition with the staff and reviewed records and labs. The patient is still restless and is still confused. The patient also is still suspicious and is still paranoid. The patient also is still guarded and is still having episodes of yelling and screaming. The patient yesterday, seems to be slightly calmer than before and the first day that she seems to be slightly calmer. At the same time, the patient has no side effects of medications. ASSESSMENT: The patient is still psychotic and still needs close monitoring. TREATMENT PLAN: Continue monitoring her behavior and her condition closely. Also, continue adjusting psychotropic medications and work on behavioral modification. [facility]# [id number]
--- NOTE | 2019-03-03 11:52 | Internal Medicine Prog Note ---
Internal Medicine Subjective - Subjective Patient is:: awake, verbal, in bed, agitated, confused Patient Complaints of:: other (History of Alzheimer's disease.) Per staff patient has:: no adverse event, no episodes of fall, agitated Internal Medicine Objective - Results Recent Labs: Laboratory Last Values POC Glucose 88 MG/DL (70 - 105) 03/03/19 06:40 - Physical Exam Vitals and I&O: Vital Signs Temp 96.8 F 03/03/19 05:53 Pulse 75 03/03/19 05:53 Resp 16 03/03/19 08:00 BP 125/62 03/03/19 05:53 Pulse Ox 97 03/03/19 05:53 Intake & Output 03/02/19 03/03/19 03/03/19 18:59 06:59 18:59 Intake Total 1120 240 Output Total 1 Balance 1120 239 Intake: Oral 1120 240 Output: Urine/Stool Mix 1 Other: # Voids 4 1 # Bowel Movements 1 Active Medications: Current Medications Acetaminophen (Tylenol) 650 mg PO Q4H PRN PRN Reason: mild pain 1-3 Stop: 04/17/19 04:37 Acetaminophen (Tylenol) 650 mg PO Q4H PRN PRN Reason: temp above 100.5 F Stop: 04/17/19 04:38 Al Hydrox/Mg Hydrox/Simethicone (Maalox) 30 ml PO Q6HR PRN PRN Reason: indigestion Stop: 04/17/19 09:30 Last Admin: 02/27/19 01:52 Dose: 30 ml Clopidogrel Bisulfate (Plavix) 75 mg PO DAILY [facility] Stop: 04/17/19 09:44 Last Admin: 03/03/19 08:25 Dose: 75 mg Dextrose (Glutose 40%) 18.75 gm PO PRN PRN PRN Reason: BS Below 70 if tolerate po Stop: 04/17/19 06:18 Docusate Sodium (Colace) 100 mg PO Q12HR PRN PRN Reason: Constipation Stop: 04/17/19 09:30 Donepezil HCl (Aricept) 10 mg PO HS [facility] Stop: 04/22/19 20:59 Last Admin: 03/02/19 20:44 Dose: 10 mg Glucagon (Glucagen) 1 mg IM PRN PRN PRN Reason: BS Below 70 if not tolerate po Stop: 04/17/19 06:18 Guaifenesin/Dextromethorphan (Robitussin Dm) 10 ml PO Q6HR PRN PRN Reason: Cough Stop: 04/20/19 16:52 Insulin Human Lispro (Humalog Insulin Sliding Scale) 0 units SUBQ ACHS [facility]; Protocol Stop: 04/17/19 11:29 Last Admin: 03/03/19 11:15 Dose: Not Given Lorazepam (Ativan) 0.5 mg PO Q4HR PRN; Protocol PRN Reason: Anxiety Stop: 03/18/19 04:31 Last Admin: 03/02/19 00:58 Dose: 0.5 mg Magnesium Hydroxide (Milk Of Magnesia) 30 ml PO HS PRN PRN Reason: Constipation Megestrol Acetate (Megace) 400 mg PO QDAC [facility] Stop: 04/18/19 07:29 Last Admin: 03/03/19 06:56 Dose: 400 mg Multivitamins/Vitamin C (Theragran) 1 tab PO DAILY [facility] Stop: 04/17/19 08:59 Last Admin: 03/03/19 08:25 Dose: 1 tab Ondansetron HCl (Zofran Odt) 4 mg PO Q6HR PRN PRN Reason: Nausea Stop: 04/17/19 09:30 Pantoprazole Sodium (Protonix) 40 mg PO QDAC [facility] Stop: 04/18/19 07:29 Last Admin: 03/03/19 06:56 Dose: 40 mg Polyethylene Glycol (Miralax) 17 gm PO [facility] Stop: 04/17/19 20:59 Last Admin: 03/02/19 20:44 Dose: 17 gm Risperidone (Risperdal) 1 mg PO BID [facility]; Protocol Stop: 05/01/19 16:59 Simvastatin (Zocor) 20 mg PO [facility]; Protocol Stop: 04/17/19 20:59 Last Admin: 03/02/19 20:44 Dose: 20 mg Sodium Chloride (Nacl Tab) 1 gm PO DAILY [facility] Stop: 04/17/19 09:44 Last Admin: 03/03/19 08:25 Dose: 1 gm Tramadol HCl (Ultram) 25 mg PO Q8HR PRN PRN Reason: Pain (Moderate 4-6) Stop: 04/17/19 09:30 Trazodone HCl (Desyrel) 50 mg PO HS [facility]; Protocol Stop: 05/01/19 20:59 Last Admin: 03/02/19 20:44 Dose: 50 mg Zolpidem Tartrate (Ambien) 5 mg PO HS PRN PRN Reason: Insomnia Stop: 04/17/19 04:31 Last Admin: 03/02/19 20:44 Dose: 5 mg General: weak, demented, NAD HEENT: NC/AT Neck: Supple, No JVD Lungs: other (no acute respiratory distress on RA) Cardiovascular: RRR Abdomen: soft, non-tender Extremities: clear Neurological: no change Internal Medicine Assmt/Plan - Assessment Assessment: Dementia Depression Agitation HTN Hyperlipidemia DM GERD hx anemia - Plan Plan: Continue current treatment plan. Continue current medications Continue to monitor VS Monitor Diet/Nutritional support. Psych management per Psychiatry. Pain Management. PT/OT prn Safety precaution, Fall precaution, frequent nursing round. Supportive care. Continue collaborating with consulting specialists, case management and nursing team Nutritional Asmnt/Malnutr-PDOC - Dietary Evaluation Malnutrition Findings (Please click <Entered> for more info): Nutritional Asmnt/Malnutrition Start: 02/21/19 13: 58 Text: Status: Complete Freq: Protocol: Document 02/21/19 14:00 IRIS (Rec: 02/21/19 14:03 IRIS [id number]) Nutritional Asmnt/Malnutrition Patient General Information Nutritional Screening Moderate Risk Diagnosis Psychosis Pertinent Medical Hx/Surgical Hx HTN, DMT2- insulin dependent, Hyperlipidemia, Dementia, Depression, Anemia, Alzheimer s Disease Subjective Information Pt is a 88-year-old female admitted on 02/16 d/t constant yelling, not taking medication and being undirectable. Pt is currently eating an estimated 60% x3 days (average) per Meal/Nutrition Activity Record . Dietary is currently providing an estimated 2000 kcals and 120 gm Pro. Per pt PO intake, this is providing an estimated 1200 kcals and 70gm Pro, to meet an estimated 71% kcal and 100% Pro needs. Will continue to monitor pt PO intake trends. Pt was in the community room at time of visit getting ready for activities. Anthropometrics HT: 55 WT: 148 LB (67.27 kg) BMI: 24.68 (normal) GI/ Skin Integrity GI symptoms: soft, non-tender Kamron: 16 Skin Integrity:WNL, intact I/O: 1140/1 (+1139) Last BM: 02/19 x1 Diet Rx: Mechanical Soft, NCS, CRISTHIAN Estimated Energy Needs: ( Geriatric, CBW) 0429-7316 kcals (25-30 kcals/ kg) 67-80g Pro (1.0-1.2 g/kg) 9602-5689 ml (25-30 ml/kg) Current Diet Order/ Nutrition Support Mechanical Soft, NCS, CRISTHIAN Pertinent Medications Maalox (PRN), Plavix, Glutose 40% (PRN), Colace, Glucagen ( PRN), INS-SS, MOM (PRN), Megace, Theragran Pertinent Labs POC Glucose (last 24 hours): 117, 138, 106, 93 02/16: Na 132, Glucose 122, Alb 2.8, HDL 29, A1c 5.9% Nutritional Hx/Data Height 5 ft 5 in Height (Calculated Centimeters) 165.1 Current Weight (lbs) 148 lb Weight (Calculated Kilograms) 67.1 Weight (Calculated Grams) 70760.7 [place] Body Weight 125 LB (56.82 kg) % [place] Body Weight 118 Body Mass Index (BMI) 24.6 Weight Status Approriate GI Symptoms GI Symptoms None Last BM 02/19 x1 Skin Integrity/Comment: Kamron: Miko Skin Integrity: WNL, intact Current %PO Fair (50-74%) Estimated Nutritional Goals BEE in Kcals: Using Current wt Calories/Kcals/Kg 25-30 Kcals Calculated 7355-8800 Protein: Using Current wt Protein g/k.0-1.2 Protein Calculated 67-80 Fluid: ml 7840-7295 ml (25-30 ml/kg) Nutritional Problem 1. Problem Problem Impaired nutrient utilization Etiology r/t endocrine dysfunction Signs/Symptoms: aeb Hx DMT2 and labs POC Glucose (last 24 hours): 117, 138, 106, 93, A1c (02/16) 5.9%. Malnutrition Related to Morbid Obesity Malnutrition related to morbid obesity No Intervention/Recommendation Comments 1.Continue Mechanical Soft, NCS, CRISTHIAN diet as tolerated. 2.Continue antihyperglycemic medications for glucose control per MD order. Expected Outcomes/Goals Expected Outcomes/Goals 1.PO intake to continue to meet 75% of estimated nutritional needs. 2.Monitor PO intake, wt, nutrition related labs, and skin integrity. 3.F/U as low risk in 7-10 days , 02/28-03/03
[2019-03-03] MEDS: POLYETHYLENE GLYCOL 3350 17 GM PACK PO SCH (21:12)
[2019-03-04] MEDS: INSULIN LISPRO SLIDING SCALE 100 UNITS/ML UNIT SUBQ SCH ×4 (06:48→21:00)
[2019-03-04] MEDS: Pantoprazole 40 mg EC Tab PO SCH (06:51)
[2019-03-04] MEDS: Multivitamin Tab PO SCH (10:25)
--- NOTE | 2019-03-04 10:41 | Progress Notes ---
DATE: 03/04/2019 SUBJECTIVE: The patient was seen in the dining area. The patient appears to be restless and paranoid. The patient is confused and needing a lot of redirection, episodes of agitation and screaming, still has poor impulse control. Otherwise, the patient appears to be in no acute distress. OBJECTIVE: VITAL SIGNS: Temperature 97.7, heart rate 77, blood pressure 150/65, respirations 20, and 97% on room air. HEENT: Head is atraumatic and normocephalic. Eyes: Bilateral conjunctivae are clear. Bilateral pupils equal, round, and reactive. NECK: Supple. No JVD. CARDIOVASCULAR: S1 and S2, without murmur. PULMONARY: Clear to auscultation. GASTROINTESTINAL: Soft and nontender without guarding. Positive bowel sounds. MUSCULOSKELETAL: No clubbing. No cyanosis noted. ASSESSMENT: 1. Dementia. 2. Hypertension. 3. Hyperlipidemia. 4. Diabetes. 5. Anemia. 6. Gastroesophageal reflux disease. PLAN: We will continue to keep the patient in the inpatient Psychiatric Unit. We will follow up with a psychiatrist to monitor the patient's condition and behavior. Treatment plans were discussed with the patient's nurse. Treatment plans were discussed with Dr. Gonzalez. JOB# [id number]
--- NOTE | 2019-03-04 19:36 | Progress Notes ---
DATE: 03/04/2019 SUBJECTIVE: Chart was reviewed and the patient interviewed. Also discussed the patient's condition with the staff and reviewed records and labs. The patient is still confused and is still restless. The patient also is still trying to carry on conversation, but she is unable to do so and she is incoherent. She also is still having irritability and mood swings. Otherwise, the patient is compliant with taking her medications with no side effects of medications. Also, the patient has difficulty sleeping at night and she did not sleep most of last night. ASSESSMENT: The patient is still confused and paranoid. TREATMENT PLAN: We will continue monitoring behavior closely. Also, we will increase trazodone to 75 mg at bedtime. Also, continue to work on behavioral modification and her irritability. JOB# [id number]
[2019-03-04] MEDS: POLYETHYLENE GLYCOL 3350 17 GM PACK PO SCH (20:56)
[2019-03-05] MEDS: INSULIN LISPRO SLIDING SCALE 100 UNITS/ML UNIT SUBQ SCH ×4 (06:33→21:01)
[2019-03-05] MEDS: Pantoprazole 40 mg EC Tab PO SCH (06:39)
[2019-03-05] MEDS: Multivitamin Tab PO SCH (10:21)
[2019-03-05] MEDS: POLYETHYLENE GLYCOL 3350 17 GM PACK PO SCH (20:38)
--- NOTE | 2019-03-05 21:43 | Internal Medicine Prog Note ---
Internal Medicine Subjective - Subjective Patient is:: awake, verbal, in bed, agitated, confused Patient Complaints of:: other (History of Alzheimer's disease.) Per staff patient has:: no adverse event, no episodes of fall, agitated Internal Medicine Objective - Results Recent Labs: Laboratory Last Values POC Glucose 130 MG/DL (70 - 105) H 03/05/19 20:29 - Physical Exam Vitals and I&O: Vital Signs Temp 98.1 F 03/05/19 20:42 Pulse 79 03/05/19 20:42 Resp 20 03/05/19 20:42 BP 124/58 03/05/19 20:42 Pulse Ox 99 03/05/19 20:42 Intake & Output 03/05/19 03/05/19 03/06/19 06:59 18:59 06:59 Intake Total 240 240 Balance 240 240 Intake: Oral 240 240 Other: # Voids 1 2 2 # Bowel Movements 0 Active Medications: Current Medications Acetaminophen (Tylenol) 650 mg PO Q4H PRN PRN Reason: mild pain 1-3 Stop: 04/17/19 04:37 Acetaminophen (Tylenol) 650 mg PO Q4H PRN PRN Reason: temp above 100.5 F Stop: 04/17/19 04:38 Al Hydrox/Mg Hydrox/Simethicone (Maalox) 30 ml PO Q6HR PRN PRN Reason: indigestion Stop: 04/17/19 09:30 Last Admin: 02/27/19 01:52 Dose: 30 ml Clopidogrel Bisulfate (Plavix) 75 mg PO DAILY [facility] Stop: 04/17/19 09:44 Last Admin: 03/05/19 10:21 Dose: 75 mg Dextrose (Glutose 40%) 18.75 gm PO PRN PRN PRN Reason: BS Below 70 if tolerate po Stop: 04/17/19 06:18 Docusate Sodium (Colace) 100 mg PO Q12HR PRN PRN Reason: Constipation Stop: 04/17/19 09:30 Donepezil HCl (Aricept) 10 mg PO HS [facility] Stop: 04/22/19 20:59 Last Admin: 03/05/19 20:39 Dose: 10 mg Glucagon (Glucagen) 1 mg IM PRN PRN PRN Reason: BS Below 70 if not tolerate po Stop: 04/17/19 06:18 Guaifenesin/Dextromethorphan (Robitussin Dm) 10 ml PO Q6HR PRN PRN Reason: Cough Stop: 04/20/19 16:52 Insulin Human Lispro (Humalog Insulin Sliding Scale) 0 units SUBQ ACHS [facility]; Protocol Stop: 04/17/19 11:29 Last Admin: 03/05/19 21:01 Dose: Not Given Lorazepam (Ativan) 0.5 mg PO Q4HR PRN; Protocol PRN Reason: Anxiety Stop: 03/18/19 04:31 Last Admin: 03/04/19 20:57 Dose: 0.5 mg Magnesium Hydroxide (Milk Of Magnesia) 30 ml PO HS PRN PRN Reason: Constipation Megestrol Acetate (Megace) 400 mg PO QDAC [facility] Stop: 04/18/19 07:29 Last Admin: 03/05/19 06:39 Dose: 400 mg Multivitamins/Vitamin C (Theragran) 1 tab PO DAILY [facility] Stop: 04/17/19 08:59 Last Admin: 03/05/19 10:21 Dose: 1 tab Ondansetron HCl (Zofran Odt) 4 mg PO Q6HR PRN PRN Reason: Nausea Stop: 04/17/19 09:30 Pantoprazole Sodium (Protonix) 40 mg PO QDAC [facility] Stop: 04/18/19 07:29 Last Admin: 03/05/19 06:39 Dose: 40 mg Polyethylene Glycol (Miralax) 17 gm PO HS [facility] Stop: 04/17/19 20:59 Last Admin: 03/05/19 20:38 Dose: 17 gm Risperidone (Risperdal) 1 mg PO BID [facility]; Protocol Stop: 05/01/19 16:59 Last Admin: 03/05/19 17:37 Dose: 1 mg Simvastatin (Zocor) 20 mg PO HS [facility]; Protocol Stop: 04/17/19 20:59 Last Admin: 03/05/19 20:38 Dose: 20 mg Sodium Chloride (Nacl Tab) 1 gm PO DAILY [facility] Stop: 04/17/19 09:44 Last Admin: 03/05/19 10:21 Dose: 1 gm Tramadol HCl (Ultram) 25 mg PO Q8HR PRN PRN Reason: Pain (Moderate 4-6) Stop: 04/17/19 09:30 Trazodone HCl (Desyrel) 75 mg PO HS [facility]; Protocol Stop: 05/03/19 20:59 Last Admin: 03/05/19 20:39 Dose: 75 mg Zolpidem Tartrate (Ambien) 5 mg PO HS PRN PRN Reason: Insomnia Stop: 04/17/19 04:31 Last Admin: 03/03/19 21:12 Dose: 5 mg General: weak, demented, NAD HEENT: NC/AT Neck: Supple, No JVD Lungs: other (no acute respiratory distress on RA) Cardiovascular: RRR Abdomen: soft, non-tender Extremities: clear Neurological: no change Internal Medicine Assmt/Plan - Assessment Assessment: Dementia Depression Agitation HTN Hyperlipidemia DM GERD hx anemia - Plan Plan: Continue current treatment plan. Continue current medications Continue to monitor VS Monitor Diet/Nutritional support. Psych management per Psychiatry. Pain Management. PT/OT prn Safety precaution, Fall precaution, frequent nursing round. Supportive care. Continue collaborating with consulting specialists, case management and nursing team Nutritional Asmnt/Malnutr-PDOC - Dietary Evaluation Malnutrition Findings (Please click <Entered> for more info): Nutritional Asmnt/Malnutrition Start: 02/21/19 13: 58 Text: Status: Complete Freq: Protocol: Document 02/21/19 14:00 IRIS (Rec: 02/21/19 14:03 [email or web address] [id number]) Nutritional Asmnt/Malnutrition Patient General Information Nutritional Screening Moderate Risk Diagnosis Psychosis Pertinent Medical Hx/Surgical Hx HTN, DMT2- insulin dependent, Hyperlipidemia, Dementia, Depression, Anemia, Alzheimer s Disease Subjective Information Pt is a 88-year-old female admitted on 02/16 d/t constant yelling, not taking medication and being undirectable. Pt is currently eating an estimated 60% x3 days (average) per Meal/Nutrition Activity Record . Dietary is currently providing an estimated 2000 kcals and 120 gm Pro. Per pt PO intake, this is providing an estimated 1200 kcals and 70gm Pro, to meet an estimated 71% kcal and 100% Pro needs. Will continue to monitor pt PO intake trends. Pt was in the community room at time of visit getting ready for activities. Anthropometrics HT: 55 WT: 148 LB (67.27 kg) BMI: 24.68 (normal) GI/ Skin Integrity GI symptoms: soft, non-tender Kamron: 16 Skin Integrity:WNL, intact I/O: 1140/1 (+1139) Last BM: 02/19 x1 Diet Rx: Mechanical Soft, NCS, CRISTHIAN Estimated Energy Needs: ( Geriatric, CBW) 9102-3599 kcals (25-30 kcals/ kg) 67-80g Pro (1.0-1.2 g/kg) 0357-1207 ml (25-30 ml/kg) Current Diet Order/ Nutrition Support Mechanical Soft, NCS, CRISTHIAN Pertinent Medications Maalox (PRN), Plavix, Glutose 40% (PRN), Colace, Glucagen ( PRN), INS-SS, MOM (PRN), Megace, Theragran Pertinent Labs POC Glucose (last 24 hours): 117, 138, 106, 93 02/16: Na 132, Glucose 122, Alb 2.8, HDL 29, A1c 5.9% Nutritional Hx/Data Height 5 ft 5 in Height (Calculated Centimeters) 165.1 Current Weight (lbs) 148 lb Weight (Calculated Kilograms) 67.1 Weight (Calculated Grams) 94587.7 [place] Body Weight 125 LB (56.82 kg) % [place] Body Weight 118 Body Mass Index (BMI) 24.6 Weight Status Approriate GI Symptoms GI Symptoms None Last BM 02/19 x1 Skin Integrity/Comment: Kamron: Miko Skin Integrity: WNL, intact Current %PO Fair (50-74%) Estimated Nutritional Goals BEE in Kcals: Using Current wt Calories/Kcals/Kg 25-30 Kcals Calculated 1650-9452 Protein: Using Current wt Protein g/k.0-1.2 Protein Calculated 67-80 Fluid: ml 4717-8207 ml (25-30 ml/kg) Nutritional Problem 1. Problem Problem Impaired nutrient utilization Etiology r/t endocrine dysfunction Signs/Symptoms: aeb Hx DMT2 and labs POC Glucose (last 24 hours): 117, 138, 106, 93, A1c (02/16) 5.9%. Malnutrition Related to Morbid Obesity Malnutrition related to morbid obesity No Intervention/Recommendation Comments 1.Continue Mechanical Soft, NCS, CRISTHIAN diet as tolerated. 2.Continue antihyperglycemic medications for glucose control per MD order. Expected Outcomes/Goals Expected Outcomes/Goals 1.PO intake to continue to meet 75% of estimated nutritional needs. 2.Monitor PO intake, wt, nutrition related labs, and skin integrity. 3.F/U as low risk in 7-10 days , 02/28-03/03
--- NOTE | 2019-03-05 22:22 | Progress Notes ---
DATE: 03/05/2019 SUBJECTIVE: Chart was reviewed and the patient interviewed. Also discussed the patient's condition with the staff and reviewed records and labs. The patient is still confused and restless, but seems to be less agitated and less irritable. The patient also is interacting slightly more. The patient also still has difficulty sleeping at times. Also, yesterday, she slept slightly better since trazodone was increased to 75 mg at bedtime. Otherwise, the patient is compliant with taking her medications with no side effects of medications. ASSESSMENT: The patient is still confused, but less agitated. TREATMENT PLAN: Continue Risperdal, trazodone, and Aricept, same dose. Also, continue monitoring behavior and followup. JOB# [id number]
[2019-03-06] MEDS: Pantoprazole 40 mg EC Tab PO SCH (06:42)
[2019-03-06] MEDS: INSULIN LISPRO SLIDING SCALE 100 UNITS/ML UNIT SUBQ SCH ×2 (06:52→11:43)
[2019-03-06] MEDS: Multivitamin Tab PO SCH (08:30)
--- NOTE | 2019-03-06 10:58 | Internal Medicine Prog Note ---
Internal Medicine Subjective - Subjective Service Date: 03/06/19 Patient seen and examined:: with staff Patient is:: awake, verbal, in bed, agitated, confused Patient Complaints of:: other (History of Alzheimer's disease.) Per staff patient has:: no adverse event, no episodes of fall, agitated Internal Medicine Objective - Results Recent Labs: Laboratory Last Values POC Glucose 131 MG/DL (70 - 105) H 03/06/19 05:58 - Physical Exam Vitals and I&O: Vital Signs Temp 97.8 F 03/06/19 06:02 Pulse 81 03/06/19 06:02 Resp 20 03/06/19 07:50 BP 170/77 03/06/19 06:02 Pulse Ox 95 03/06/19 06:02 Intake & Output 03/05/19 03/06/19 03/06/19 18:59 06:59 18:59 Intake Total 400 Balance 400 Intake: Oral 400 Other: # Voids 2 2 # Bowel Movements 0 0 Active Medications: Current Medications Acetaminophen (Tylenol) 650 mg PO Q4H PRN PRN Reason: mild pain 1-3 Stop: 04/17/19 04:37 Acetaminophen (Tylenol) 650 mg PO Q4H PRN PRN Reason: temp above 100.5 F Stop: 04/17/19 04:38 Al Hydrox/Mg Hydrox/Simethicone (Maalox) 30 ml PO Q6HR PRN PRN Reason: indigestion Stop: 04/17/19 09:30 Last Admin: 02/27/19 01:52 Dose: 30 ml Clopidogrel Bisulfate (Plavix) 75 mg PO DAILY [facility] Stop: 04/17/19 09:44 Last Admin: 03/06/19 08:30 Dose: 75 mg Dextrose (Glutose 40%) 18.75 gm PO PRN PRN PRN Reason: BS Below 70 if tolerate po Stop: 04/17/19 06:18 Docusate Sodium (Colace) 100 mg PO Q12HR PRN PRN Reason: Constipation Stop: 04/17/19 09:30 Donepezil HCl (Aricept) 10 mg PO HS [facility] Stop: 04/22/19 20:59 Last Admin: 03/05/19 20:39 Dose: 10 mg Glucagon (Glucagen) 1 mg IM PRN PRN PRN Reason: BS Below 70 if not tolerate po Stop: 04/17/19 06:18 Guaifenesin/Dextromethorphan (Robitussin Dm) 10 ml PO Q6HR PRN PRN Reason: Cough Stop: 04/20/19 16:52 Insulin Human Lispro (Humalog Insulin Sliding Scale) 0 units SUBQ ACHS [facility]; Protocol Stop: 04/17/19 11:29 Last Admin: 03/06/19 06:52 Dose: Not Given Lorazepam (Ativan) 0.5 mg PO Q4HR PRN; Protocol PRN Reason: Anxiety Stop: 03/18/19 04:31 Last Admin: 03/04/19 20:57 Dose: 0.5 mg Magnesium Hydroxide (Milk Of Magnesia) 30 ml PO HS PRN PRN Reason: Constipation Megestrol Acetate (Megace) 400 mg PO QDAC [facility] Stop: 04/18/19 07:29 Last Admin: 03/06/19 06:42 Dose: 400 mg Multivitamins/Vitamin C (Theragran) 1 tab PO DAILY [facility] Stop: 04/17/19 08:59 Last Admin: 03/06/19 08:30 Dose: 1 tab Ondansetron HCl (Zofran Odt) 4 mg PO Q6HR PRN PRN Reason: Nausea Stop: 04/17/19 09:30 Pantoprazole Sodium (Protonix) 40 mg PO QDAC [facility] Stop: 04/18/19 07:29 Last Admin: 03/06/19 06:42 Dose: 40 mg Polyethylene Glycol (Miralax) 17 gm PO HS [facility] Stop: 04/17/19 20:59 Last Admin: 03/05/19 20:38 Dose: 17 gm Risperidone (Risperdal) 1 mg PO BID [facility]; Protocol Stop: 05/01/19 16:59 Last Admin: 03/06/19 08:30 Dose: 1 mg Simvastatin (Zocor) 20 mg PO HS [facility]; Protocol Stop: 04/17/19 20:59 Last Admin: 03/05/19 20:38 Dose: 20 mg Sodium Chloride (Nacl Tab) 1 gm PO DAILY [facility] Stop: 04/17/19 09:44 Last Admin: 03/06/19 08:30 Dose: 1 gm Tramadol HCl (Ultram) 25 mg PO Q8HR PRN PRN Reason: Pain (Moderate 4-6) Stop: 04/17/19 09:30 Trazodone HCl (Desyrel) 75 mg PO HS [facility]; Protocol Stop: 05/03/19 20:59 Last Admin: 03/05/19 20:39 Dose: 75 mg Zolpidem Tartrate (Ambien) 5 mg PO HS PRN PRN Reason: Insomnia Stop: 04/17/19 04:31 Last Admin: 03/03/19 21:12 Dose: 5 mg Physical Exam: Patient continues to need to be monitored, having trouble sleeping, still agitated and confused. General: weak, demented, NAD HEENT: NC/AT Neck: Supple, No JVD Lungs: other (no acute respiratory distress on RA) Cardiovascular: RRR Abdomen: soft, non-tender Extremities: clear Neurological: no change Internal Medicine Assmt/Plan - Assessment Assessment: Weak. Demented. Alzheimer's disease. Agitation. Dementia. Hypertension. Diabetes. Hyperlipidemia. Depression. History of Gerd/Gastritis. History of Anemia. - Plan Plan: Continue present meds as directed Psych management as per Psych. Monitor vitals and labs. Monitor diet and nutritional support. Fall precaution. Pain management. Accu-check twice daily. Continue present care management. Nutritional Asmnt/Malnutr-PDOC - Dietary Evaluation Malnutrition Findings (Please click <Entered> for more info): Nutritional Asmnt/Malnutrition Start: 02/21/19 13: 58 Text: Status: Complete Freq: Protocol: Document 02/21/19 14:00 IRIS (Rec: 02/21/19 14:03 IRIS [id number]) Nutritional Asmnt/Malnutrition Patient General Information Nutritional Screening Moderate Risk Diagnosis Psychosis Pertinent Medical Hx/Surgical Hx HTN, DMT2- insulin dependent, Hyperlipidemia, Dementia, Depression, Anemia, Alzheimer s Disease Subjective Information Pt is a 88-year-old female admitted on 02/16 d/t constant yelling, not taking medication and being undirectable. Pt is currently eating an estimated 60% x3 days (average) per Meal/Nutrition Activity Record . Dietary is currently providing an estimated 2000 kcals and 120 gm Pro. Per pt PO intake, this is providing an estimated 1200 kcals and 70gm Pro, to meet an estimated 71% kcal and 100% Pro needs. Will continue to monitor pt PO intake trends. Pt was in the community room at time of visit getting ready for activities. Anthropometrics HT: 55 WT: 148 LB (67.27 kg) BMI: 24.68 (normal) GI/ Skin Integrity GI symptoms: soft, non-tender Kamron: 16 Skin Integrity:WNL, intact I/O: 1140/1 (+1139) Last BM: 02/19 x1 Diet Rx: Mechanical Soft, NCS, CRISTHIAN Estimated Energy Needs: ( Geriatric, CBW) 6550-9886 kcals (25-30 kcals/ kg) 67-80g Pro (1.0-1.2 g/kg) 1704-3282 ml (25-30 ml/kg) Current Diet Order/ Nutrition Support Mechanical Soft, NCS, CRISTHIAN Pertinent Medications Maalox (PRN), Plavix, Glutose 40% (PRN), Colace, Glucagen ( PRN), INS-SS, MOM (PRN), Megace, Theragran Pertinent Labs POC Glucose (last 24 hours): 117, 138, 106, 93 02/16: Na 132, Glucose 122, Alb 2.8, HDL 29, A1c 5.9% Nutritional Hx/Data Height 1.65 m Height (Calculated Centimeters) 165.1 Current Weight (lbs) 67.132 kg Weight (Calculated Kilograms) 67.1 Weight (Calculated Grams) 10774.7 [place] Body Weight 125 LB (56.82 kg) % [place] Body Weight 118 Body Mass Index (BMI) 24.6 Weight Status Approriate GI Symptoms GI Symptoms None Last BM 02/19 x1 Skin Integrity/Comment: Kamron: 16 Skin Integrity: WNL, intact Current %PO Fair (50-74%) Estimated Nutritional Goals BEE in Kcals: Using Current wt Calories/Kcals/Kg 25-30 Kcals Calculated 6034-6880 Protein: Using Current wt Protein g/k.0-1.2 Protein Calculated 67-80 Fluid: ml 7375-2619 ml (25-30 ml/kg) Nutritional Problem 1. Problem Problem Impaired nutrient utilization Etiology r/t endocrine dysfunction Signs/Symptoms: aeb Hx DMT2 and labs POC Glucose (last 24 hours): 117, 138, 106, 93, A1c (02/16) 5.9%. Malnutrition Related to Morbid Obesity Malnutrition related to morbid obesity No Intervention/Recommendation Comments 1.Continue Mechanical Soft, NCS, CRISTHIAN diet as tolerated. 2.Continue antihyperglycemic medications for glucose control per MD order. Expected Outcomes/Goals Expected Outcomes/Goals 1.PO intake to continue to meet 75% of estimated nutritional needs. 2.Monitor PO intake, wt, nutrition related labs, and skin integrity. 3.F/U as low risk in 7-10 days , 02/28-03/03
--- NOTE | 2019-03-06 23:23 | Discharge Summary ---
DATE OF DISCHARGE: 03/06/2019 AGE: 88. SEX: Female. PHYSICIAN: Dr. Kelly. FINAL DIAGNOSIS AND PRIMARY DIAGNOSIS: Unspecified psychosis. SECONDARY DIAGNOSIS: Dementia, moderate to severe, with psychotic features and behavioral disturbances. REASON FOR HOSPITALIZATION: The patient was admitted to the hospital because of increased agitation and because of irritability and difficulty following directions in [facility]. HOSPITAL COURSE: The patient continued to be in irritable mood. The patient also continued to be easily agitated with episodes of yelling and screaming for no apparent reasons. She also continued to work on his irritability. The patient continued to take Aricept and dose adjusted to 10 mg every day and also the patient was given Risperdal and the dose adjusted to 1 mg twice a day. Also because of insomnia, trazodone was given at a dose of 75 mg every time at night. Gradually, the patient's affect was brighter. The patient was less irritable and less agitated and decreased screaming and yelling and the patient was discharged back to the intermediate. Physical examination of the patient showed as mentioned under [place] III of final diagnosis. Blood workup was also basically monitored closely and the patient had no major medical issues while in the hospital. EXPECTED OUTCOME AFTER DISCHARGE: Fair if the patient continued to take her medications and follow with discharge plans. [facility]# [id number]
== END 2019-03-06 15:45 | DRG 885 ==
LOC: GERO 02-16 03:00
PROVIDERS: ADMIT Psychiatry & Neurology Psychiatry; ATTEND Psychiatry & Neurology Psychiatry
DX: F29 Unspecified psychosis not due to a substance or known physiological condition (principal); F02.81 Dementia in other diseases classified elsewhere, unspecified severity, with behavioral disturbance; F32.9 Major depressive disorder, single episode, unspecified; I10 Essential (primary) hypertension; E11.9 Type 2 diabetes mellitus without complications; E78.5 Hyperlipidemia, unspecified; G30.9 Alzheimer's disease, unspecified; K21.9 Gastro-esophageal reflux disease without esophagitis; D64.9 Anemia, unspecified
CPT/HCPCS: 82948-90; 83036-90; 97530; X3904; Z7610